=== PATIENT | male | born 1960 | race Hispanic/Latino ===

== ENCOUNTER 2017-08-02 09:45 | Inpatient (IN) | payer OTHER ==
[2017-08-02 10:15] LABS: #Lymphocytes 0.8 thou/uL (1.20-3.40); #Monocytes 0.2 thou/uL (0.11-0.59); #Neutrophils 8.9 thou/uL (1.40-6.50); %Basophils 0.2 % (0.0-1.0); %Lymphocytes 8.3 % (21.0-51.0); %Monocytes 1.9 % (0.0-10.0); Hematocrit 37.5 % (42.0-52.0); Mean Platelet Volume 6.1 fL (7.4-10.4); Red Blood Cell (RBC) Count 3.92 mill/uL (4.70-6.10); White Blood Cell (WBC) Count 9.9 thou/uL (4.8-10.8)
[2017-08-02] MEDS ORDERED: Ondansetron HCl/PF 4 MG/2 ML Vial ONE (10:19)
[2017-08-02 10:30] LABS: ALT (SGPT) 38 U/L (8-55); AST (SGOT) 48 U/L (5-34); Alkaline Phosphatase 59 U/L (40-150); Anion Gap 21 mmol/L (10-20); BUN (Urea Nitrogen) 26 mg/dL (8.4-25.7); Bilirubin, Total 1.8 mg/dL (0.2-1.2); Calc. Creatinine Clearance 0 mL/min (70-130); Calcium 8.1 mg/dL (7.8-10.44); Carbon Dioxide 20 mmol/L (22-29); Chloride 89 mmol/L (98-107); Estimated GFR-MDRD Greater than 90; Globulin 3.1 g/dL (2.4-3.5); Protein, Total 6.7 g/dL (6.0-8.3)
[2017-08-02] MEDS ORDERED: Octreotide Acetate 1,250 MCG in Sodium Chloride 0.9% 250 ML 250 ML IVPB SCH ×2 (10:45→15:45)
[2017-08-02] MEDS ORDERED: Pantoprazole 40 MG VIAL ONE (11:12)
[2017-08-02] MEDS ORDERED: Sterile Water 10 ML ONE (11:13)
[2017-08-02] MEDS ORDERED: Pantoprazole 40 MG VIAL IVP SCH (11:15)
[2017-08-02 11:22] LABS: CK (CPK) 947 U/L (30-200); Lipase 27 U/L (8-78)
--- NOTE | 2017-08-02 11:55 | CT ---
CT ABDOMEN AND PELVIS WITH IV CONTRAST: HISTORY: Abdomen pain. COMPARISON: 09/11/10. FINDINGS: The lung bases are clear. Liver is diffusely hypodense. Small hiatal hernia is apparent. The sple en, kidneys, adrenal glands, and pancreas have a normal CT appearance. There are degenerative villegas es throughout the lumbar spine. Diverticula arise from the colon without adjacent inflammation. La ck of oral contrast limits evaluation of the bowel. IMPRESSION: 1. No acute inflammatory changes are apparent. No evidence of bowel obstruction. 2. Hepatosteatosis. 3. Small hiatal hernia. POS: [facility]
[2017-08-02 12:11] LABS: Bilirubin Negative (Negative); Blood, Urine Negative (Negative); Glucose, Urine (Dipstick) 500 mg/dL (Negative); Ketone, Urine 15 mg/dL (Negative); Nitrite Negative (Negative); Protein, Urine (Dipstick) Negative (Neg-Trace)
[2017-08-02] MEDS ORDERED: Ondansetron HCl/PF 4 MG/2 ML Vial IVP PRN ×2 (14:26→15:42)
[2017-08-02] MEDS ORDERED: Ondansetron ODT 4 MG TAB SL PRN (14:26)
[2017-08-02] MEDS ORDERED: Sodium Chloride 0.9% 1,000 ML IV SCH ×2 (14:26→15:15)
[2017-08-02 14:55] LABS: Hematocrit 32.4 % (42.0-52.0)
[2017-08-02] MEDS ORDERED: Ondansetron ODT 4 MG TAB PO PRN (15:42)
[2017-08-02] MEDS ORDERED: Acetaminophen 500 MG TAB PO PRN (15:42)
[2017-08-02] MEDS ORDERED: Lorazepam 2 MG/ML VIAL SLOW IVP PRN (15:42)
[2017-08-02] MEDS ORDERED: Dextrose 50% Abboject 50 ML SYRINGE SLOW IVP PRN (15:54)
[2017-08-02] MEDS ORDERED: Dextrose 5% in Water 1,000 ML IV PRN (15:54)
[2017-08-02] MEDS: Sodium Chloride 0.9% 1,000 ML IV SCH ×2 (16:17→23:58)
[2017-08-02] MEDS: Pantoprazole 80 MG, Admixture Fee 1 EACH in Sodium Chloride 0.9% 100 ML IVP SCH (16:22)
[2017-08-02] MEDS: Multivitamins, Adult 10 ML, Folic Acid 1 MG, Thiamine HCl 100 MG in Dextrose 5 %-0.45 %... IV SCH ×4 (16:22)
--- NOTE | 2017-08-02 16:23 | HP ---
DATE OF ADMISSION: 08/02/2017 PRIMARY CARE PROVIDER: Jenny sarah. CHIEF COMPLAINT: Vomiting blood. HISTORY OF PRESENT ILLNESS: This is a 57-year-old male, Jamaican speaking only, who present s with 1 day history of vomiting blood. Patient with a longstanding history of known alcohol abuse with prior admission in 04/2017 for upper GI bleed and alcohol abuse. The patient apparently had a binge drinking episode beyond his baseline alcohol abuse over the last 2 weeks. The patient states his last alcohol intake was within the last 24 hours. The patient admitted to abdominal pain and vo miting blood, prompting him to seek medical attention. The patient also complains of some headache and lower extremity cramping. In the emergency department, the patient was initially placed on intr avenous fluids with initial hemoglobin of 12.7. Patient was initiated on Protonix and octreotide in fusion after the patient exhibited coffee ground emesis. PAST MEDICAL HISTORY: 1. Alcohol abuse. 2. History of upper GI bleeds. 3. History of grade D severe distal erosive esophagitis. 4. History of gastritis. 5. History of alcohol withdrawal syndrome. 6. History of rhabdomyolysis. 7. Noncompliance. 8. Question of diabetes mellitus type 2, untreated. 9. Hyponatremia secondary to alcohol abuse. PAST SURGICAL HISTORY: 1. Status post EGD showing severe erosive esophagitis and gastritis. 2. Status post lower back surgery. CURRENT MEDICATIONS: None. ALLERGIES: No known drug allergies. FAMILY HISTORY: Both parents in their 70s. SOCIAL HISTORY: Patient drinks more than 10 beers daily. Positive for recent binge drinking episod e. The patient chews smokeless tobacco. Lives in [place], [place]. No illicit drug use. REVIEW OF SYSTEMS: The following complete review of systems was negative, unless otherwise mentione d in the HPI or below: Constitutional: Weight loss or gain, ability to conduct usual activities. Skin: Rash, itching. Eyes: Double vision, pain. ENT/Mouth: Nose bleeding, neck stiffness, pain, tenderness. Cardiovascular: Palpitations, dyspnea on exertion, orthopnea. Respiratory: Shortness of breath, wheezing, cough, hemoptysis, fever or night sweats. Gastrointestinal: Poor appetite, abdominal pain, heartburn, nausea, vomiting, constipation, or diar daisy. Genitourinary: Urgency, frequency, dysuria, nocturia. Musculoskeletal: Pain, swelling. Neurologic/Psychiatric: Anxiety, depression. Allergy/Immunologic: Skin rash, bleeding tendency. Otherwise negative except as stated per HPI. PHYSICAL EXAMINATION: VITAL SIGNS ON ADMISSION: Currently, blood pressure 138/70, pulse 85, respiratory rate is 18, tempe rature 98.5 degrees Fahrenheit, O2 saturation 96% on room air. GENERAL APPEARANCE: This is a 57-year-old male, alert, responsive, in no acute distress. HEENT: Pupils are equal, round, and reactive to light and accommodation. Extraocular muscles are i ntact. Mild conjunctival injection bilaterally. Nares patent. OP with dried blood in the periorbi laney region. Teeth in poor repair. NECK: Supple, no cervical adenopathy, no thyromegaly, no carotid bruits, no JVD appreciated. Cervi tong spine with full active and passive range of motion. CHEST: Lungs are clear to auscultation bilaterally. CARDIOVASCULAR: S1, S2, without noted murmur. ABDOMEN: Rounded, soft, nontender, nondistended. Bowel sounds are positive in all four quadrants. There is no hepatosplenomegaly, no abdominal bruits, no rebound or guarding appreciated. EXTREMITIES: Warm and dry with fair turgor. No clubbing, cyanosis or asymmetric edema appreciated. Pulses palpable distally at the dorsalis pedis, posterior tibial, and popliteal arteries bilateral ly. Capillary refill less than 2 seconds. NEUROLOGIC: Cranial nerves II-XII are grossly intact. No focal or lateralizing signs appreciated. PERTINENT LABORATORY DATA AND X-RAY FINDINGS: Sodium 126, potassium 3.8, chloride 89, CO2 of 20, an ion gap 21, BUN 26, creatinine 0.81, glucose 228, calcium 8.1. Serum iron level 219, ferritin 304.7 , total bilirubin 1.8, AST 48, ALT 38, alkaline phosphatase 59, total CK of 947, albumin 3.6, lipase 27. CBC showed white blood cell count 9.9, hemoglobin 12.7, hematocrit 37.5, MCV 96, platelet coun t 135 with 90% neutrophils. Urinalysis positive for glucose and ketones. Plasma alcohol level 120. Gastric occult blood positive on 08/02/2017. CT of the abdomen and pelvis dated 08/02/2017 showed no acute process, hepato-steatosis. EKG dated 08/02/2017 by my interpretation shows sinus mechanis m with rates in the 90s. Normal R-wave progression noted in the precordial leads. Normal axis. No acute ST-T wave changes appreciated. ASSESSMENT AND PLAN: 1. Acute hematemesis. The patient will be admitted to the intermediate care unit. Suspect esophag eal varices versus worsening esophagitis. Continue Protonix infusion. Continue octreotide infusion . Continue intravenous normal saline at 150 mL per hour. Consult GI Service for further investigat ion and consideration of esophagogastroduodenoscopy. Serial hemoglobin and hematocrit monitoring. 2. Acute macrocytic anemia secondary to acute blood loss. Continue serial hemoglobin and hematocri t monitoring. Repeat CBC in the a.m. 3. Hyponatremia, chronic, secondary to chronic alcohol abuse. We will continue serial monitoring. No evidence to suggest clinical decompensation secondary to hyponatremia. 4. Alcohol abuse. Continue banana bag q.24 hours, Ativan 1 mg IV q.4 hours p.r.n. withdrawal sympt oms. Alcohol cessation resources. 5. Diabetes mellitus type 2. Untreated and medically noncompliant. Insulin sliding scale for refl exive coverage. Accu-Cheks q.6 hours. 6. Prophylaxis. Sequential compression devices while in bed. Protonix infusion. 7. Code status is FULL. Surrogate medical decision maker is the patient's daughter Tamiko Marquez.
[2017-08-02] MEDS ORDERED: ISOVUE-370 76%-LOCM 1 ML ONE (17:16)
--- NOTE | 2017-08-02 18:32 | CON ---
DATE OF CONSULTATION: 08/02/2017 GI INPATIENT CONSULTATION NOTE REQUESTING PHYSICIAN: Dr. Méndez. REASON FOR CONSULTATION: Hematemesis. HISTORY OF PRESENT ILLNESS: Toby Marquez is a 57-year-old man previously seen in the outpatient s etting by my colleague, Dr. Katt Gill. He was admitted to the hospital earlier today with acute hematemesis. He has an ongoing history of chronic heavy alcohol abuse and has been on especially h eavy drinking binge over the past 2 weeks, he says with very little oral intake aside from beer. No w over the past couple of days, he has had nausea and vomiting and this morning he started having he matemesis. He describes this as coffee ground emesis, though after arrival, he evidently did have s ome bright red hematemesis in small amounts. This was alarming and this is what prompted his presen tation. He also reports bilateral weakness in the lower extremities and headache as well as some tr emor in the upper and lower extremities. His last alcohol intake was within the past 24 hours. Note, he had essentially the same presentation on multiple occasions in the past few years on , 04/2014, and 04/20/2015. He presented with acute alcohol intoxication and acute hematemesis and on each of those occasions he underwent upper endoscopy, all of which showed severe distal esophagit is as well as gastritis and no evidence of any esophageal varices or other evidence of portal hypert ension. Upon arrival, hemoglobin was 12.7 and this has declined a bit to 11.4; however, he has remained hemo dynamically stable. There has been no evidence of melena or hematochezia. He was placed on Protoni x and octreotide infusions and made n.p.o. Notably, the patient tells me quite clearly that he does not want any endoscopic investigation this admission that he feels he knows where the blood is comi ng from and he would like to be treated with medications only. REVIEW OF SYSTEMS: Full review of systems including constitutional, head, eyes, ears, nose, throat, GI, , cardiovascular, respiratory, musculoskeletal, and neurologic systems is negative except as noted in the HPI. PAST MEDICAL HISTORY: Diabetes, alcohol abuse, history of severe esophagitis and gastritis, history of rhabdomyolysis, medication noncompliance. ALLERGIES: No known drug allergies. OUTPATIENT MEDICATIONS: None. INPATIENT MEDICATIONS: Banana bag, octreotide IV infusion, Protonix IV infusion. FAMILY HISTORY: Noncontributory. SOCIAL HISTORY: The patient chews tobacco. He also drinks alcohol heavily at least 10 beers per da y normally with much heavier use over the past 2 weeks. No drug abuse. PHYSICAL EXAMINATION: VITAL SIGNS: Temperature 98.5, pulse 83, blood pressure 138/70, 97% oxygen saturation on room air. GENERAL: A 57-year-old man lying in bed comfortably in no distress. MENTAL: Alert and oriented. He is able to answer questions appropriately as well as expresses wish es. SKIN: No jaundice, no rashes were palpable. EYES: No scleral icterus. Extraocular movements intact. ENT: Mucous membranes moist, no oral lesions. LYMPH: No submandibular or supraclavicular lymphadenopathy. THYROID: Nontender to palpation. HEART: Regular rate and rhythm. LUNGS: Clear to auscultation bilaterally. ABDOMEN: Flat, bowel sounds present, soft, tender to palpation only in the high epigastrium, but no guarding or rebound tenderness. EXTREMITIES: No peripheral edema. VESSELS: Radial pulses 2+ bilaterally. NEUROLOGICAL: Cranial nerves II-XII intact bilaterally, no asterixis. LABORATORY DATA: Hemoglobin initially 12.7, now 11.4, platelets 126. WBC 9.9, BUN 26, creatinine 0 .81, sodium 126, potassium 3.8, ferritin 304. Alcohol levels 120, lipase only 27, CK elevated at 94 7, total bilirubin 1.8, alkaline phosphatase 59, AST 48, ALT 38, albumin 3.6. IMAGING STUDIES: CT of the abdomen and pelvis demonstrates fatty liver and a small hiatal hernia, b ut otherwise appears essentially normal with normal appearing pancreas, spleen and kidneys. He has diverticulosis with no evidence of diverticulitis. ASSESSMENT AND PLAN: 1. Acute hematemesis. 2. Anemia, mild. 3. Ongoing alcohol abuse. The patient's presentation is certainly consistent with acute upper ana rointestinal bleeding. Note that this was essentially an identical presentation with three other ad missions over the past 4 years. Note that on each admission, upper endoscopy showed severe esophagi tis as well as some gastritis, but no evidence of any varices or portal hypertension. I doubt varic eal bleeding at this time, given his hemodynamic stability, and prior endoscopy findings. However, I do agree with the Protonix and octreotide infusions for now as we follow his clinical course in to tomorrow. Continue to trend hemoglobin and hematocrit. Note his hemodynamic stability at this hannah e. 4. I recommended esophagogastroduodenoscopy tomorrow for further assessment and identified bleeding source, rule out esophageal varices more definitively. However, the patient is quite clear that he does not desire any endoscopic investigation this admission. He would like to be treated with medi cines only. He does express understanding of the risks involved either way and I would honor his de cision at this point. GI can follow along. Anticipate if he is stable tomorrow, the octreotide can be discontinued. Would continue Protonix for the duration of this admission and at the time of dis charge, discharge him on an oral PPI and told me he certainly needs to find a way to stop drinking. Thank you for the consultation. Please call with questions or concerns.
[2017-08-02] MEDS ORDERED: FLU VACC QS2017-18 36 mo. & older 0.5 ML SYRINGE IM ONE (21:00)
[2017-08-02] MEDS: HumaLOG 300 UNITS/3 ML VIAL SC PRN (23:53)
[2017-08-03] MEDS: Pantoprazole 80 MG, Admixture Fee 1 EACH in Sodium Chloride 0.9% 100 ML IVP SCH ×3 (00:18→22:17)
[2017-08-03 05:25] LABS: Band 1 % (5-11); Neutrophil 66 % (42-75); Red Blood Cell (RBC) Count 2.43 mill/uL (4.70-6.10); White Blood Cell (WBC) Count 10.1 thou/uL (4.8-10.8)
[2017-08-03 05:57] LABS: ALT (SGPT) 30 U/L (8-55); AST (SGOT) 38 U/L (5-34); Alkaline Phosphatase 43 U/L (40-150); Anion Gap 12 mmol/L (10-20); BUN (Urea Nitrogen) 19 mg/dL (8.4-25.7); Bilirubin, Total 1.9 mg/dL (0.2-1.2); Calc. Creatinine Clearance 98 mL/min (70-130); Calcium 7.4 mg/dL (7.8-10.44); Carbon Dioxide 23 mmol/L (22-29); Chloride 99 mmol/L (98-107); Estimated GFR-MDRD Greater than 90; Globulin 2.3 g/dL (2.4-3.5); Protein, Total 5.3 g/dL (6.0-8.3)
[2017-08-03] MEDS: Sodium Chloride 0.9% 1,000 ML IV SCH ×2 (09:44→16:18)
--- NOTE | 2017-08-03 10:34 | CON ---
DATE OF CONSULTATION: 08/03/2017 CONSULTING PHYSICIAN: This is an IMCU consultation. HISTORY OF PRESENT ILLNESS: He is a 57-year-old male who speaks Scottish only. He came in with a 1 day history of hematemesis. He has also had melena. He has a longstanding history of alcoh ol abuse and was in the hospital in 04/2017 with a GI bleed. He has been bingeing over the last 2 w eeks. He is scheduled for an EGD later today. PAST MEDICAL HISTORY: 1. Alcohol abuse. 2. GI bleeding. 3. Erosive esophagitis. 4. Alcohol withdrawal. 5. Rhabdomyolysis. 6. Medical noncompliance. 7. Diabetes mellitus type 2. 8. Hypernatremia secondary to beer drinkers potomania. PAST SURGICAL HISTORY: EGD, back surgery. MEDICATIONS PRIOR TO ADMISSION: None. ALLERGIES: None. FAMILY MEDICAL HISTORY: Both parents are . SOCIAL HISTORY: Drinks at least 10 beers a day. He chews smokeless tobacco. Lives in [place], does not work. REVIEW OF SYSTEMS: Otherwise, negative. PHYSICAL EXAMINATION: VITAL SIGNS: Temperature 98.1, pulse 90, respirations 20, O2 sat 100%, blood pressure 110/67. GENERAL: He is awake, alert, and in no distress. HEENT: Unremarkable. NECK: No JVD. LUNGS: Clear to auscultation. CARDIOVASCULAR: S1, S2 regular. ABDOMEN: Liver palpable at the right costal margin. Otherwise, abdomen is soft and nontender. EXTREMITIES: No clubbing, cyanosis, or edema. NEUROLOGIC: He has a resting tremor. LABORATORY DATA: White blood cell count 10, hematocrit 24, platelet count 118. Sodium 131, potassi um 3.4, chloride 99, CO2 of 23, BUN 19, creatinine 0.7, glucose 208. ASSESSMENT: 1. Gastrointestinal bleeding secondary to esophagitis versus varices versus peptic ulcer disease 2. Alcohol abuse. PLAN: The patient will undergo EGD later today. 2. He is currently on octreotide and IV fluids. He needs to be given thiamine and folate if that i s not already being done. He has severe risk for developing DTs.
[2017-08-03] MEDS ORDERED: Propofol 200 MG/20 ML VIAL ONE (14:37)
[2017-08-03] MEDS ORDERED: ePHEDrine/0.9% NaCl/PF SYRINGE 50 mg/10 ml ONE (14:37)
[2017-08-03] MEDS ORDERED: Lidocaine 1% PF 5 ML VIAL ONE (14:37)
--- NOTE | 2017-08-03 15:09 | OP ---
DATE OF PROCEDURE: 08/03/2017 PROCEDURE: Esophagogastroduodenoscopy with control of hemorrhage. PREOPERATIVE DIAGNOSES: Hematemesis and anemia of acute blood loss. OPERATIVE NOTE: Informed consent was obtained from the patient. He was sedated with total intraven ous anesthesia. The bite block was placed and the endoscope was advanced easily to the second porti on of the duodenum and retroflexion was performed in the stomach. There was a grade D erosive esoph agitis of the distal third of the esophagus. There was a visible vessel protruding in the ulcer bas e a couple of centimeters above the GE junction. This was cauterized with a 10-Thai gold probe wi th good hemostasis. The vessel did ooze when it was touched with the gold probe. Again, good hemos tasis was confirmed once electrocautery was applied. The stomach had nonerosive erythematous gastri tis in the fundus. The remainder of the gastric mucosa was normal. The pylorus and first and secon d portions of the duodenum were normal. IMPRESSION: 1. Grade D erosive esophagitis. 2. Visible vessel in an ulcer base in the distal esophagus which was cauterized with a 10-Thai go ld probe with good hemostasis. 3. Mild erythematous gastritis in the fundus of the stomach. 4. Otherwise normal esophagogastroduodenoscopy. RECOMMENDATIONS: 1. Proton pump inhibitor twice daily. 2. Advance to a low residue diet. 3. Dr. Kim will be back tomorrow.
[2017-08-03 15:22] VITALS: BMI 25.6
--- NOTE | 2017-08-03 16:06 | PDOC.PN ---
- Subjective Encounter Start Date: 08/03/17 Encounter Start Time: 16:00 Subjective: f/u for UGI bleed s/p EGD showing Grade D erosive esophagitis and ulcer -: with visible vessel cauterized. - Objective Resuscitation Status: Resuscitation Status FULL:Full Resuscitation MAR Reviewed: Yes Vital Signs & Weight: Vital Signs (12 hours) Temp Pulse Resp BP Pulse Ox 08/03/17 15:30 98.8 F 86 16 129/68 99 08/03/17 14:00 86 16 111/61 100 08/03/17 11:29 98.5 F 84 20 119/73 100 08/03/17 10:13 76 16 110/64 98 08/03/17 07:58 98.1 F 90 20 100 08/03/17 07:12 98.1 F 90 20 110/67 100 Weight Admit Weight 138 lb 14.4 oz Weight 140 lb 2 oz I&O: 08/02/17 08/03/17 08/04/17 06:59 06:59 06:59 Intake Total 3189.4 Output Total 1050 Balance 2139.4 Result Diagrams: 08/03/17 04:59 08/03/17 04:59 Additional Labs: Accuchecks 08/03/17 08/03/17 08/02/17 11:38 05:39 23:40 POC Glucose 175 H 196 H 283 H 08/02/17 16:32 POC Glucose 162 H Laboratory Tests 08/02/17 08/02/17 08/02/17 10:05 10:05 14:46 Hgb 12.7 L 11.4 L Plt Count 135 126 L Sodium 126 L EKG Reviewed by me: Yes (Tele - SR) Phys Exam - Physical Examination Constitutional: NAD HEENT: PERRLA, oral pharynx no lesions Neck: no JVD, supple Respiratory: no wheezing, clear to auscultation bilateral Cardiovascular: RRR Gastrointestinal: soft, non-tender, no distention, positive bowel sounds Musculoskeletal: no edema, pulses present mild tremor Neurological: normal sensation, moves all 4 limbs Psychiatric: A&O x 3 Skin: normal turgor, cap refill <2 seconds Dx/Plan (1) Esophageal ulcer Code(s): K22.10 - ULCER OF ESOPHAGUS WITHOUT BLEEDING Status: Acute Qualifiers: Esophageal ulcer bleeding: with bleeding Qualified Code(s): K22.11 - Ulcer of esophagus with bleeding Comment: s/p cauterization, PPI (2) UGI bleed Code(s): K92.2 - GASTROINTESTINAL HEMORRHAGE, UNSPECIFIED Status: Acute Comment: secondary to erosive esophagitis and ulcer (3) Acute blood loss anemia Code(s): D62 - ACUTE POSTHEMORRHAGIC ANEMIA Status: Acute Comment: serial H/ H monitoring, FeSO4 (4) Erosive esophagitis Code(s): K22.10 - ULCER OF ESOPHAGUS WITHOUT BLEEDING Status: Acute Comment : PPI, avoid ETOH (5) Alcohol intoxication Status: Acute Comment: Ativan 2mg IV q4h prn (6) Hyponatremia Code(s): E87.1 - HYPO-OSMOLALITY AND HYPONATREMIA Status: Chronic Comment: Chronic, not correctable given ETOH abuse (7) Alcohol abuse Code(s): F10.10 - ALCOHOL ABUSE, UNCOMPLICATED Status: Chronic Comment: Banana bag, Ativan - Plan social research assistant, out of bed/ambulate, DVT proph w/SCDs Stable overall -: Continue Banana bag daily -: Ativan 2mg IV q4h prn -: Continue Protonix 80mg IV daily -: Avoid ETOH * AM lab: CBC * Likely home in 24h
[2017-08-03] MEDS ORDERED: Lorazepam 2 MG/ML VIAL SLOW IVP PRN (17:10)
[2017-08-03] MEDS: HumaLOG 300 UNITS/3 ML VIAL SC PRN (18:15)
[2017-08-03] MEDS: Multivitamins, Adult 10 ML, Folic Acid 1 MG, Thiamine HCl 100 MG in Dextrose 5 %-0.45 %... IV SCH ×4 (18:26)
[2017-08-04] MEDS: HumaLOG 300 UNITS/3 ML VIAL SC PRN ×2 (00:19→05:56)
[2017-08-04 06:04] LABS: Band 4 % (5-11); Hematocrit 20.9 % (42.0-52.0); Mean Platelet Volume 6.8 fL (7.4-10.4); Neutrophil 58 % (42-75); Red Blood Cell (RBC) Count 2.14 mill/uL (4.70-6.10); White Blood Cell (WBC) Count 4.7 thou/uL (4.8-10.8)
[2017-08-04 08:00] VITALS: BP 124/76; TEMP 98.2
[2017-08-04] MEDS: Pantoprazole 80 MG, Admixture Fee 1 EACH in Sodium Chloride 0.9% 100 ML IVP SCH (08:34)
[2017-08-04 09:47] LABS: Hematocrit 21.6 % (42.0-52.0)
--- NOTE | 2017-08-04 10:18 | DIS ---
DATE OF ADMISSION: 08/02/2017 DATE OF DISCHARGE: 08/04/2017 DISCHARGE DIAGNOSES: 1. Status post acute upper gastrointestinal bleed secondary to #2. 2. Esophageal ulcer, status post cauterization. 3. Severe grade D erosive esophagitis. 4. Alcohol abuse. 5. Acute blood loss anemia secondarily to #1 and #2. 6. Hyponatremia, chronic, secondary to alcohol abuse. 7. Hypokalemia, mild. 8. Thrombocytopenia secondary to alcohol abuse. 9. Noncompliance. PERTINENT LAB AND X-RAY FINDINGS: Sodium ranging between 126-131. Potassium ranging between 3.4-3. 8, calcium 7.4, serum iron level 219, ferritin 305, total bilirubin 1.8, AST 48, ALT 38, alkaline ph osphatase 59, total CK 947, lipase 27. CBC showed a hemoglobin ranging between 7.4-12.7, platelet c ount ranging between 106-135. Plasma alcohol level 120, 08/02/2017. Gastric occult blood dated 12/[address] of the abdomen and pelvis dated 08/02/2017 showed no acute intraabdominal proc ess. EGD dated 08/03/2017 showed grade D erosive esophagitis. Distal esophageal ulcer with visible vessel, status post cauterization. Mild gastritis. HOSPITAL COURSE: Patient was admitted to the intermediate care unit after initially presenting with acute upper gastrointestinal bleed and hematemesis. The patient was placed on aggressive IV fluid hydration, IV Protonix, and octreotide. The patient was evaluated by the GI service, undergoing EGD evaluation, showing grade D erosive esophagitis as well as distal esophageal ulcer with visible ves trace, status post cauterization. Serial hemoglobin assessment showed overall decrease from 12.7 on a dmission to 7.4. The patient's overall hematemesis resolved with n.p.o. status, IV fluids as well a s intravenous Protonix and octreotide. The patient was resumed on clear liquids, transitioning to a regular diet without complication. The patient was also noted with acute alcohol intoxication in t he context of known chronic alcohol abuse with concomitant metabolic derangements associated with th is process. The patient was placed on Ativan for withdrawal prophylaxis and given IV banana bag jackie ly. The patient was cautioned regarding the use of ongoing alcohol after discharge and his ramifica tions for likely GI bleeding in the future. Overall, the patient remained clinically stable through out the remainder of the hospital course and ready for discharge on 08/04/2017. DISCHARGE MEDICATIONS: Protonix 40 mg 1 tab p.o. b.i.d. x4 weeks. FOLLOWUP: The patient will be given a list of local [facility] clinics for followup. Recomme nd follow up in 7 days with CBC at first followup visit. CONDITION ON DISCHARGE: Fair. ACTIVITY: Ad mac. DIET: Regular. CODE STATUS: Full. DISPOSITION: Home, 08/04/2017.
--- NOTE | 2017-08-04 10:51 | PRG ---
DATE OF SERVICE: 08/04/2017 The patient is up walking around and feels fine and wants to go home. PHYSICAL EXAMINATION: VITAL SIGNS: Temperature 98.2, pulse 87, respirations 18, O2 sat 91%, blood pressure 124/76. HEENT: Unremarkable. NECK: No JVD. LUNGS: Clear. CARDIAC: S1 and S2 regular. ABDOMEN: Soft. EXTREMITIES: No edema. IMAGING: His EGD showed erosive esophagitis. He had a visible vessel at distal esophagus, which wa s cauterized. LABORATORY DATA: White blood cell count 4.7, hemoglobin 7.4, hematocrit 20.9, platelet count 106. No chemistry was done today. ASSESSMENT: Stable post-gastrointestinal bleed. RECOMMENDATIONS: From my standpoint, he can go to the floor. It will be up to the hospitalist and GI doctor regarding disposition at discharge, no further input. Please recall if needed.
== END 2017-08-04 11:10 | disposition home or self-care (01) | DRG 381 ==
LOC: ERS 09:45 → IMCU/EMU 12:36
PROVIDERS: ADMIT Family Medicine; ATTEND Family Medicine
PROC: 0W3P8ZZ Control Bleeding in Gastrointestinal Tract, Via Natural or Artificial Opening Endoscopic (ICD-10-PCS; principal; 2017-08-03)
DX: K22.11 Ulcer of esophagus with bleeding (principal); D62 Acute posthemorrhagic anemia; E87.1 Hypo-osmolality and hyponatremia; D69.59 Other secondary thrombocytopenia; F10.10 Alcohol abuse, uncomplicated; E87.6 Hypokalemia; Z91.14 Patient's other noncompliance with medication regimen; K29.70 Gastritis, unspecified, without bleeding; F17.220 Nicotine dependence, chewing tobacco, uncomplicated
CPT/HCPCS: 36415; 36416; 74177; 80053; 80307; 81003; 82271; 82550; 82728; 83540; 83690; 85007; 85025; 85027; 86850; 86900; 86901; 93005; 96361; 96365; 96366; 96375; A4216; C9113; J2001; J2354; J2405; J2704; J3411; J7042; J7050

== ENCOUNTER 2018-03-27 08:26 | Inpatient (IN) | payer OTHER ==
[2018-03-27] MEDS ORDERED: Ondansetron ODT 8 MG TAB ONE ×2 (09:00→10:40)
[2018-03-27 09:54] LABS: #Basophils 0.1 thou/uL (0.0-0.2); #Lymphocytes 1.1 thou/uL (1.20-3.40); #Monocytes 0.4 thou/uL (0.11-0.59); #Neutrophils 7.8 thou/uL (1.40-6.50); %Basophils 0.7 % (0.0-1.0); %Eosinophils 0.3 % (0.0-10.0); %Monocytes 3.9 % (0.0-10.0); %Neutrophils 83.2 % (42.0-75.0); Hemoglobin 13.1 g/dL (14.0-18.0); Mean Corpuscular HGB CONC 37.5 g/dL (32.0-36.0); Mean Corpuscular Hemoglobin 34.4 pg (27.0-31.0); Mean Corpuscular Volume 91.7 fl (80.0-94.0); Mean Platelet Volume 6.4 fL (7.4-10.4); Platelet Count 183 thou/uL (130-400); RBC Distribution Width 10.9 % (11.5-14.5); RBC Morphology Normal; White Blood Cell (WBC) Count 9.3 thou/uL (4.8-10.8)
[2018-03-27 10:00] LABS: ALT (SGPT) 48 U/L (8-55); AST (SGOT) 86 U/L (5-34); Albumin 3.9 g/dL (3.5-5.0); Alcohol 199 mg/dL (Less than 10); Alkaline Phosphatase 62 U/L (40-150); Anion Gap 21 mmol/L (10-20); BUN (Urea Nitrogen) 12 mg/dL (8.4-25.7); Bilirubin, Total 2.4 mg/dL (0.2-1.2); Calc. Creatinine Clearance 0 mL/min (70-130); Calcium 8.1 mg/dL (7.8-10.44); Carbon Dioxide 24 mmol/L (22-29); Estimated GFR-MDRD Greater than 90; Globulin 3.1 g/dL (2.4-3.5); Glucose 184 mg/dL (70-105); Lipase 50 U/L (8-78)
[2018-03-27 10:09] LABS: Chloride 70 mmol/L (98-107); Potassium 2.9 mmol/L (3.5-5.1); Sodium 112 mmol/L (136-145)
[2018-03-27] MEDS ORDERED: Pantoprazole 40 MG VIAL ONE (10:41)
[2018-03-27 10:55] LABS: Bilirubin Negative (Negative); Blood, Urine Negative (Negative); Clarity CLOUDY (Clear); Glucose, Urine (Dipstick) 100 mg/dL (Negative); Leukocyte Negative (Negative); Nitrite Negative (Negative); Protein, Urine (Dipstick) Negative (Neg-Trace); Specific Gravity, Urine 1.016 (1.002-1.036)
[2018-03-27 11:04] LABS: Cocaine Metabolite Screen Not Detected (NotDetected); Medtox Reader # READER 1; Methamphetamine Not Detected (NotDetected); Phencyclidine (PCP) Not Detected (NotDetected); THC/Cannabinoid Screen Not Detected (NotDetected)
[2018-03-27 11:05] LABS: Amphetamine Not Detected (NotDetected); Barbiturates Screen Not Detected (NotDetected); Benzodiazepine Screen Not Detected (NotDetected); Medtox Control Line Valid? VALID (VALID); Methadone Not Detected (NotDetected); Opiate Screen Not Detected (NotDetected); Oxycodone Screen Not Detected (NotDetected); Tricyclic Screen Not Detected (NotDetected)
--- NOTE | 2018-03-27 11:26 | PDOC.FPRHP ---
- History of Present Illness Chief Complaint: Intoxication, Headache, Vomiting History of Present Illness: 57 yo male w/ pmh of alcohol abuse, GI bleeds due to ulcers comes in with c/c of headache and vomiting. Pt is intoxicated at the current moment. Unable to obtain accurate history at this time. Pt answers to questions does not make sense at this time. Pt reports having stomach pain and a headache. Reports drinking 20 bud lights today. Pt says he didn't drink today and last drink was yesterday morning. - Allergies/Adverse Reactions Allergies Allergy/AdvReac Type Severity Reaction Status Date / Time No Known Drug Allergies Allergy Unknown Verified 03/27/18 13:27 - Home Medications Medication Instructions Recorded Confirmed Type No Known [No Known] 03/27/18 03/27/18 History - History Unable to obtain PMH due to intoxication. Hx obtained from last admission PMHx: Alcohol Abuse, Hx GI bleeds, Hx Grade D severe distal erosive esophagitis , Hx gastritis, Hx alcohol withdrawl seizures. DMII, Hyponatremia due to alcohol use PSHx: 4 EGD's in past, last showed severe erosive esophagitis and ulcer with visible vessel. S/p lower back surgery FHx: unable to obtain. Social: unable to get accurate answers. Says drinks 20 bud lights today. Old hx says uses smokless tobacco - Review of Systems ROS unobtainable: due to mental status (intoxicated and not answering appropriatley) General: reports: other (headache) Gastrointestinal: reports: abdominal pain - Vital signs BP: [141/79] HR: [79] RR: [18] Tmax: [98.3] Pox: [97]% on [RA] Wt: [68kg] - Physical Exam Constitutional: NAD -Constitutional: Pt alert but not oriented. is intoxicated at the current moment HEENT: normocephalic and atraumatic, conjunctiva clear, no scleral icterus Neck: supple, trachea midline, no thyromegaly, no bruits Chest: no-tender to palpation, no lesions Heart: RRR, normal S1/S2, no murmurs/rubs/gallops Lungs: CTAB, no respiratory distress, good air movement, no rales/rhonchi, no wheezing Abdomen: soft, bowel sounds present, no masses/distention -Abdomen: mildly tender to palpation. McMurphy's negative Musculoskeletal: normal structure, normal tone Neurological: no focal deficit Skin: no rash/lesions -Heme/Lymphatic: appears to be vomit on bed sheets and appears to have some blood on it -Psychiatric: Pt intoxicated FMR H&P: Results - Labs Result Diagrams: 03/27/18 14:54 03/27/18 14:54 Lab results: WBC 9.3 thou/uL (4.8-10.8) 03/27/18 09:14 Hgb 13.1 g/dL (14.0-18.0) L 03/27/18 09:14 Hct 34.8 % (42.0-52.0) L 03/27/18 09:14 MCV 91.7 fl (80.0-94.0) 03/27/18 09:14 Plt Count 183 thou/uL (130-400) 03/27/18 09:14 Neutrophils % 83.2 % (42.0-75.0) H 03/27/18 09:14 Sodium 112 mmol/L (136-145) L* 03/27/18 09:10 Potassium 2.9 mmol/L (3.5-5.1) L* 03/27/18 09:10 Chloride 70 mmol/L (98-107) L* 03/27/18 09:10 Carbon Dioxide 24 mmol/L (22-29) 03/27/18 09:10 BUN 12 mg/dL (8.4-25.7) 03/27/18 09:10 Creatinine 0.71 mg/dL (0.6-1.3) 03/27/18 09:10 Glucose 184 mg/dL (70-105) H 03/27/18 09:10 Calcium 8.1 mg/dL (7.8-10.44) 03/27/18 09:10 Total Bilirubin 2.4 mg/dL (0.2-1.2) H 03/27/18 09:10 AST 86 U/L (5-34) H 03/27/18 09:10 ALT 48 U/L (8-55) 03/27/18 09:10 Alkaline Phosphatase 62 U/L (40-150) 03/27/18 09:10 Serum Total Protein 7.0 g/dL (6.0-8.3) 03/27/18 09:10 Albumin 3.9 g/dL (3.5-5.0) 03/27/18 09:10 Lipase 50 U/L (8-78) 03/27/18 09:10 Urine Ketones 40 mg/dL (Negative) H 03/27/18 10:32 Urine Blood Negative (Negative) 03/27/18 10:32 Urine Nitrite Negative (Negative) 03/27/18 10:32 Ur Leukocyte Esterase Negative (Negative) 03/27/18 10:32 FMR H&P: A/P - Problem List (1) UGI bleed Current Visit: Yes Status: Acute Priority: High Code(s): K92.2 - GASTROINTESTINAL HEMORRHAGE, UNSPECIFIED (2) Hyponatremia Current Visit: Yes Status: Acute Priority: High Code(s): E87.1 - HYPO- OSMOLALITY AND HYPONATREMIA (3) Metabolic acidosis, increased anion gap Current Visit: Yes Status: Acute Priority: Medium Code(s): E87.2 - ACIDOSIS (4) Abnormal LFTs Current Visit: Yes Status: Acute Priority: Medium Code(s): R79.89 - OTHER SPECIFIED ABNORMAL FINDINGS OF BLOOD CHEMISTRY (5) Alcohol intoxication Current Visit: No Status: Acute Priority: Medium Qualifiers: Complication of substance-induced condition: with unspecified complication Qualified Code(s): F10.929 - Alcohol use, unspecified with intoxication, unspecified (6) Hypokalemia Current Visit: Yes Status: Acute Priority: Medium Code(s): E87.6 - HYPOKALEMIA (7) Alcohol abuse Current Visit: No Status: Chronic Code(s): F10.10 - ALCOHOL ABUSE, UNCOMPLICATED (8) Diabetes Current Visit: Yes Status: Acute Priority: Low Code(s): E11.9 - TYPE 2 DIABETES MELLITUS WITHOUT COMPLICATIONS Qualifiers: Diabetes mellitus type: type 2 Diabetes mellitus correction insulin use: without computer terminal operator use Diabetes mellitus complication status: with unspecified complications Qualified Code(s): E11.8 - Type 2 diabetes mellitus with unspecified complications - Plan 1) Acute UGI bleed likely 2/2 tawana trish vs ucler protonix IV bid, octreotide gtt in case of variceal bleed (although hx suggests most likely bleeding ulcer), check occult blood for gastric contents, trend H&H. Consult GI if continues to have episodes of bloody emesis or hgb begins to drop 2) Severe hyponatremia- s/p 1L NS bolus in ED. NS@150 mls/hr. -Repeat BMP q2hr and do not correct >10 mEq/24hr. seizure ppx 3) Acute ETOH intoxication- Banana bag qd until tolerating po, ASE protocol, seizure ppx with ativan Hepatitis panel, RPR, HIV pending 4) Elevated LFTs and bilirubin- underlying cirrhosis possible, check RUQ US, coags, ammonia, GGT. Will recheck CMP am. Possibly consider consultign GI 5) Hypokalemia- Will replace in banana bag. Q2hr BMP for now. Will continue to follow 6) Anion gap metabolic acidosis- due to alcohol intoxication. Will continue to trend with BMP 7) Alcoholism consider CM/MHMR for rehab when medically cleared 8) DM2- A1c pending. Unknown home medicines at this time. CC diet. Mild SSI. FMR H&P: Upper Level - Pertinent history 57yo HM with pmhx sig for longstanding ETOH abuse with recurrent admissions for UGI bleeds presents to [facility] ED with nausea, vomiting and headache. States he started drinking heavily 2 wks prior and stopped drinking yesterday am ( although alcohol level 199 currently). Beer drinker of [employer] light up to 20-30 beers daily. He endorses increased life stressors as his is in [place], but the pt does not expand beyond this. He is acutely intoxicated and a very poor historian currently. Review of records significant for prior withdrawal seizure and recent EGD in 2016 showing erosive esophagitis and visible vessel in an ulcer. pmhx- ETOH abuse, DM2 surg hx- denies meds- metformin, has not taken any in 2 wks allergies- NKDA by records review - Pertinent findings Gen- acutely intoxicated tremulous male who is disheveled and covered in dirt and bed covered with coffee-ground emesis HEENT- scleral icterus CV- RRR no mrg, no LE edema Lungs- CTAB Abd- soft, ttp in epigastrum Ext- hematoma to dorsum of right hand psyc- poor historian, poor short term memory Laboratory Tests Sig labs- 03/27/18 03/27/18 09:10 09:14 WBC 9.3 Hgb 13.1 L Hct 34.8 L Plt Count 183 Neutrophils % 83.2 H Sodium 112 L* Potassium 2.9 L* Chloride 70 L* Carbon Dioxide 24 Anion Gap 21 H BUN 12 Creatinine 0.71 Estimated GFR (MDRD) Greater than 90 Glucose 184 H Calcium 8.1 Total Bilirubin 2.4 H AST 86 H ALT 48 Alkaline Phosphatase 62 Albumin 3.9 Lipase 50 Plasma Alcohol 199 H - Plan Date/Time: 03/27/18 1126 57yo HM w/ pmhx alcohol abuse and multiple prior admissions p/w- 1) Acute UGI bleed- protonix IV bid, octreotide gtt in case of variceal bleed ( although hx suggests most likely bleeding ulcer), check occult blood for gastric contents, trend H&H. Consult GI if further episodes of hematemesis or need for urgent EGD intervention arises. 2) Severe hyponatremia- s/p 1L NS bolus in ED followed by NS gtt. Repeat BMP q2hr and do not correct >10 mEq/24hr. seizure ppx. 3) Acute ETOH intoxication- Banana bag qd until tolerating po, ASE protocol, seizure ppx with ativan (no valium as acute liver injury & possible underlying cirrhosis). check Hep B, Hep C, HIV, RPR. 4) Elevated LFTs- underlying cirrhosis possible, check RUQ US, coags, ammonia, GGT. consider GI consult. 5) Hypokalemia- replete and trend BMP 6) Anion gap metabolic acidosis- likely due to ETOH intoxication. monitor BMPs and replete lytes. 7) Alcoholism- consider CM for rehab when medically cleared 8) DM2- check a1c, hold po meds. SSI. I, [Kecia Silver DO ([email or web address])], have evaluated this patient and agree with findings/plan as outlined by graphic design intern resident. Pertinent changes/additions are listed here. Attending Addendum - Attending Addendum Date/Time: 03/27/18 5439 I personally evaluated the patient and discussed the management with Dr. Ha I agree with the History, Examination, Assessment and Plan documented above with any addition or exceptions noted below.57 yo diabetic male admitted through ER with episode of hematemesis x 1 following a 2 week beer drinking binge. Patient with prior admissions with prior EGD last 2016 with erosive esophagitis and distal esophageal ulcer which was cauterized. No prior documented evidence portal hypertension or esophageal varices. Patient with acute alcohol intoxication, hyponatremia c/w beer potomania,elevated LFTs, concern ETOH related hepatitis. Will admit placed on PPI and Octreatide empirically. consult GI prn and ASE protocol for anticipated alcohol withdrawal.
[2018-03-27] MEDS ORDERED: Octreotide Acetate 1,250 MCG in Sodium Chloride 0.9% 250 ML 250 ML IVPB SCH (12:04)
[2018-03-27] MEDS ORDERED: Dextrose 5% in Water 1,000 ML IV PRN (12:04)
[2018-03-27] MEDS ORDERED: Acetaminophen 650 MG Suppository PR PRN ×2 (12:04→12:34)
[2018-03-27] MEDS ORDERED: Sodium Chloride 0.9% 1,000 ML IV SCH (12:04)
[2018-03-27] MEDS ORDERED: Ondansetron ODT 4 MG TAB PO PRN (12:04)
[2018-03-27] MEDS ORDERED: Ondansetron HCl/PF 4 MG/2 ML Vial IVP PRN (12:04)
[2018-03-27] MEDS ORDERED: HumaLOG 300 UNITS/3 ML VIAL SC PRN (12:04)
[2018-03-27] MEDS ORDERED: Acetaminophen 325 MG TAB PO PRN (12:04)
[2018-03-27] MEDS ORDERED: Dextrose 50% Abboject 50 ML SYRINGE SLOW IVP PRN (12:04)
[2018-03-27] MEDS ORDERED: Lorazepam 2 MG/ML VIAL SLOW IVP PRN ×2 (12:04→12:07)
[2018-03-27 12:14] VITALS: BMI 25.0
[2018-03-27 12:37] LABS: Hemoglobin 12.2 g/dL (14.0-18.0); Mean Corpuscular HGB CONC 37.2 g/dL (32.0-36.0); Mean Corpuscular Volume 91.3 fl (80.0-94.0); Mean Platelet Volume 5.9 fL (7.4-10.4); Platelet Count 158 thou/uL (130-400); RBC Distribution Width 10.8 % (11.5-14.5); Red Blood Cell (RBC) Count 3.58 mill/uL (4.70-6.10); White Blood Cell (WBC) Count 8.8 thou/uL (4.8-10.8)
[2018-03-27 12:40] LABS: Hemoglobin A1c 5.4 % (4.0-6.0)
[2018-03-27 12:44] LABS: Anion Gap 15 mmol/L (10-20); BUN (Urea Nitrogen) 10 mg/dL (8.4-25.7); Calc. Creatinine Clearance 109 mL/min (70-130); Calcium 7.5 mg/dL (7.8-10.44); Carbon Dioxide 26 mmol/L (22-29); Chloride 79 mmol/L (98-107); Estimated GFR-MDRD Greater than 90; Glucose 136 mg/dL (70-105); PTT 26.9 SEC (22.9-36.1); Potassium 3.4 mmol/L (3.5-5.1); Prothrombin Time 13.7 SEC (12.0-14.7)
[2018-03-27 12:46] LABS: Magnesium 1.6 mg/dL (1.6-2.6); Phosphorus 2.9 mg/dL (2.3-4.7)
[2018-03-27 12:49] LABS: Sodium 117 mmol/L (136-145)
[2018-03-27] MEDS ORDERED: Potassium Chloride 40 MEQ in Sodium Chloride 0.9% 500 ML IVPB ONE (13:00)
[2018-03-27 13:04] LABS: Syphilis Antibody Nonreactive (Nonreactive); Syphilis Antibody Index 0.06 S/CO (<1.00 Non-Reactive)
[2018-03-27 13:07] LABS: HBCM Index 0.07 S/CO (0-0.79); HBSAg Index 0.25 S/CO (0-0.99); HIV (1/2) Antibody/Antigen Non-Reactive (NonReactive); HIV 1/2 INDEX 0.14 S/CO (<1.00); Hep A IgM AB Non-Reactive (NonReactive); Hep A IgM S/CO 0.12 S/CO (0-0.79); Hep B Surf Ag Non-Reactive S/CO (NonReactive); Hep C IgG Ab Non-Reactive (NonReactive); Hep C Index 0.09 S/CO (0-0.79); Hepatitis B Core IGM Abs Non-Reactive (NonReactive)
--- NOTE | 2018-03-27 13:23 | ULT ---
GALLBLADDER ULTRASOUND: HISTORY: Epigastric pain. Elevated bilirubin. COMPARISON: None. TECHNIQUE: Utilizing a multihertz transducer, sonographic imaging in the right upper quadrant is performed in a longitudinal and transverse plane. FINDINGS: Pancreas is obscured by bowel gas. Heterogeneity of the liver due limits evaluation. Right hepatic lobe measures 18 cm. Patent main portal vein. Appropriate directional flow. Common bile duct diameter is 0.4 cm. Sludge within the lumen of the gallbladder. Gallbladder wall is not thickened. No pericholecystic f luid. Negative Hull's sign. No hydronephrosis. The right kidney has a normal echotexture. The right kidney measures 4.6 x 10.3 x 5.1 cm. IMPRESSION: 1. No sonographic evidence of cholecystitis. Possible sludge. 2. Hepatomegaly with heterogenous attenuation due to hepatic steatosis as demonstrated on previous C T. POS: [facility]
[2018-03-27] MEDS: Potassium Chloride 20 MEQ in Premix Bag 1 BAG IVPB SCH ×2 (13:43→14:25)
[2018-03-27] MEDS: Acetaminophen 325 MG TAB PO PRN (13:49)
[2018-03-27 15:02] LABS: Hemoglobin 12.4 g/dL (14.0-18.0); Mean Corpuscular HGB CONC 36.6 g/dL (32.0-36.0); Mean Corpuscular Hemoglobin 33.5 pg (27.0-31.0); Mean Corpuscular Volume 91.6 fl (80.0-94.0); Mean Platelet Volume 6.1 fL (7.4-10.4); Platelet Count 160 thou/uL (130-400); RBC Distribution Width 10.9 % (11.5-14.5); Red Blood Cell (RBC) Count 3.69 mill/uL (4.70-6.10); White Blood Cell (WBC) Count 11.4 thou/uL (4.8-10.8)
[2018-03-27 15:21] LABS: Anion Gap 14 mmol/L (10-20); BUN (Urea Nitrogen) 9 mg/dL (8.4-25.7); Calc. Creatinine Clearance 102 mL/min (70-130); Calcium 7.7 mg/dL (7.8-10.44); Carbon Dioxide 27 mmol/L (22-29); Chloride 81 mmol/L (98-107); Estimated GFR-MDRD Greater than 90; Glucose 120 mg/dL (70-105); Potassium 3.5 mmol/L (3.5-5.1)
[2018-03-27] MEDS ORDERED: Multivitamins, Adult 10 ML, Folic Acid 1 MG, Thiamine HCl 100 MG in Dextrose 5 %-0.45 %... IV SCH (15:30)
[2018-03-27 15:31] LABS: Sodium 118 mmol/L (136-145)
[2018-03-27] MEDS ORDERED: Multivit, Adult Inj 10 ML VIAL IV SCH (16:45)
[2018-03-27] MEDS ORDERED: Multivitamins, Adult 10 ML in Sodium Chloride 0.9% 500 ML IV ONE (17:00)
[2018-03-27 18:36] LABS: Anion Gap 17 mmol/L (10-20); BUN (Urea Nitrogen) 9 mg/dL (8.4-25.7); Calc. Creatinine Clearance 103 mL/min (70-130); Calcium 7.7 mg/dL (7.8-10.44); Carbon Dioxide 25 mmol/L (22-29); Chloride 82 mmol/L (98-107); Estimated GFR-MDRD Greater than 90; Glucose 98 mg/dL (70-105); Potassium 3.7 mmol/L (3.5-5.1); Sodium 120 mmol/L (136-145)
[2018-03-27] MEDS: Thiamine HCl 200 MG/2 ML VIAL SLOW IVP SCH (19:15)
[2018-03-27] MEDS: Lorazepam 2 MG/ML VIAL SLOW IVP PRN (19:19)
[2018-03-27] MEDS: Pantoprazole 40 MG VIAL IVP SCH (20:49)
[2018-03-27 21:18] LABS: Anion Gap 14 mmol/L (10-20); BUN (Urea Nitrogen) 10 mg/dL (8.4-25.7); Calc. Creatinine Clearance 99 mL/min (70-130); Calcium 7.5 mg/dL (7.8-10.44); Carbon Dioxide 26 mmol/L (22-29); Chloride 83 mmol/L (98-107); Estimated GFR-MDRD Greater than 90; Glucose 120 mg/dL (70-105)
[2018-03-27 21:20] LABS: Sodium 119 mmol/L (136-145)
[2018-03-28 01:12] LABS: Anion Gap 13 mmol/L (10-20); BUN (Urea Nitrogen) 10 mg/dL (8.4-25.7); Calc. Creatinine Clearance 94 mL/min (70-130); Calcium 7.5 mg/dL (7.8-10.44); Carbon Dioxide 26 mmol/L (22-29); Chloride 88 mmol/L (98-107); Estimated GFR-MDRD Greater than 90; Glucose 86 mg/dL (70-105); Potassium 3.8 mmol/L (3.5-5.1); Sodium 123 mmol/L (136-145)
[2018-03-28] MEDS: Lorazepam 2 MG/ML VIAL SLOW IVP PRN (02:09)
[2018-03-28 05:27] LABS: #Lymphocytes 1.3 thou/uL (1.20-3.40); #Monocytes 0.4 thou/uL (0.11-0.59); #Neutrophils 5.1 thou/uL (1.40-6.50); %Basophils 0.4 % (0.0-1.0); %Eosinophils 0.3 % (0.0-10.0); %Lymphocytes 18.8 % (21.0-51.0); %Monocytes 6.2 % (0.0-10.0); %Neutrophils 74.3 % (42.0-75.0); Hemoglobin 11.6 g/dL (14.0-18.0); Mean Corpuscular HGB CONC 36.8 g/dL (32.0-36.0); Mean Corpuscular Hemoglobin 34.9 pg (27.0-31.0); Mean Corpuscular Volume 94.9 fl (80.0-94.0); Platelet Count 167 thou/uL (130-400); RBC Distribution Width 11.1 % (11.5-14.5); Red Blood Cell (RBC) Count 3.32 mill/uL (4.70-6.10); White Blood Cell (WBC) Count 6.9 thou/uL (4.8-10.8)
[2018-03-28 05:50] LABS: ALT (SGPT) 50 U/L (8-55); AST (SGOT) 80 U/L (5-34); Albumin 3.3 g/dL (3.5-5.0); Alkaline Phosphatase 61 U/L (40-150); Anion Gap 13 mmol/L (10-20); BUN (Urea Nitrogen) 11 mg/dL (8.4-25.7); Bilirubin, Total 2.1 mg/dL (0.2-1.2); Calc. Creatinine Clearance 105 mL/min (70-130); Calcium 7.8 mg/dL (7.8-10.44); Carbon Dioxide 21 mmol/L (22-29); Chloride 92 mmol/L (98-107); Estimated GFR-MDRD Greater than 90; Globulin 2.8 g/dL (2.4-3.5); Glucose 86 mg/dL (70-105); Potassium 3.6 mmol/L (3.5-5.1); Protein, Total 6.1 g/dL (6.0-8.3); Sodium 122 mmol/L (136-145)
--- NOTE | 2018-03-28 08:40 | PDOC.FM ---
- Subjective Subjective: No acute events overnight. Pt did not have anymore episodes of coffee ground emesis. Denies cp, sob, nvdc, abominal pain. Dneies changes in stool or blood in stool. Eating and drinking well w/o pain. Pt reports he has previously gone 6 -7 months without any alcohol previously. - Objective Vital Signs & Weight: Vital Signs (12 hours) Temp Pulse Resp BP Pulse Ox 03/28/18 04:00 98.2 F 83 19 131/69 98 03/28/18 00:00 98.2 F 75 18 141/69 H 98 03/27/18 20:55 98.7 F 80 16 134/66 97 Weight Weight 61.779 kg I&O: 03/27/18 03/28/18 03/29/18 06:59 06:59 06:59 Intake Total 1650 Output Total 1500 Balance 150 Result Diagrams: 03/28/18 04:18 03/28/18 04:18 Phys Exam - Physical Examination Constitutional: NAD HEENT: PERRLA, sclera anicteric conjunctival injection Neck: no nodes, no JVD Respiratory: no wheezing, no rales, no rhonchi, clear to auscultation bilateral Cardiovascular: RRR, no significant murmur, no rub Gastrointestinal: soft, non-tender, no distention, positive bowel sounds Musculoskeletal: no edema, pulses present Neurological: non-focal, normal sensation Skin: no rash, cap refill <2 seconds Dx/Plan (1) Abnormal LFTs Code(s): R79.89 - OTHER SPECIFIED ABNORMAL FINDINGS OF BLOOD CHEMISTRY Status : Acute (2) Diabetes Code(s): E11.9 - TYPE 2 DIABETES MELLITUS WITHOUT COMPLICATIONS Status: Acute Qualifiers: Diabetes mellitus type: type 2 Diabetes mellitus watermelon harvesting supervisor insulin use: without fdc use Diabetes mellitus complication status: with unspecified complications Qualified Code(s): E11.8 - Type 2 diabetes mellitus with unspecified complications (3) Hypokalemia Code(s): E87.6 - HYPOKALEMIA Status: Acute (4) Hyponatremia Code(s): E87.1 - HYPO-OSMOLALITY AND HYPONATREMIA Status: Acute (5) UGI bleed Code(s): K92.2 - GASTROINTESTINAL HEMORRHAGE, UNSPECIFIED Status: Acute (6) Alcohol intoxication Status: Acute Qualifiers: Complication of substance-induced condition: with unspecified complication Qualified Code(s): F10.929 - Alcohol use, unspecified with intoxication, unspecified (7) Erosive esophagitis Code(s): K22.10 - ULCER OF ESOPHAGUS WITHOUT BLEEDING Status: Acute (8) Alcohol abuse Code(s): F10.10 - ALCOHOL ABUSE, UNCOMPLICATED Status: Chronic - Plan Plan: 1) Acute UGI bleed- protonix IV bid -DC octreotide - Given history and positive finding of erosive esophagitis in past this is most likely source. - cont protonix, h/h slight decrease from yesterday, trend in AM and monitor for s/s of cont bleeding -possibly 2/2 tawana trish tear 2) Severe hyponatremia- s/p 1L NS bolus in ED followed by NS gtt. Corrected 10mEq in 24 hours. SL and no fluid restrictions. Likely secondary to beer potomania -Repeat am BMP, continues to improve 3) Acute ETOH intoxication- Banana bag qd until tolerating po, ASE protocol, seizure ppx with ativan Hep panel and HIV RPR are negative. 4) Elevated LFTs- Fatty liver on RUQ US, no evidence of cirrhosis on US 5) Hypokalemia- replete and trend BMP, resolved 6) Anion gap metabolic acidosis- likely due to ETOH intoxication. monitor BMPs and replete lytes, resolved 7) Alcoholism- consider CM for rehab when medically cleared 8) DM2- check a1c, hold po meds, cont SSI. A1C 5.4. Dispo: Cont to monitor Elytes and daily hgb. Likely d/c tomorrow if no acute bleeds and hgb remains stable in addition to correcting Na.
[2018-03-28] MEDS: Pantoprazole 40 MG VIAL IVP SCH (08:58)
[2018-03-28] MEDS: Multivit, Therapeutic 1 TAB PO SCH (08:58)
[2018-03-28 09:44] LABS: Anion Gap 9 mmol/L (10-20); BUN (Urea Nitrogen) 13 mg/dL (8.4-25.7); Calc. Creatinine Clearance 89 mL/min (70-130); Calcium 7.9 mg/dL (7.8-10.44); Carbon Dioxide 26 mmol/L (22-29); Chloride 90 mmol/L (98-107); Estimated GFR-MDRD Greater than 90; Glucose 216 mg/dL (70-105); Potassium 3.2 mmol/L (3.5-5.1); Sodium 122 mmol/L (136-145)
[2018-03-28] MEDS ORDERED: Magnesium 2 GM/NS 0.9% 100 ML 2 GM in Premix Bag 1 BAG IVPB SCH (12:30)
[2018-03-28] MEDS ORDERED: Potassium Chloride 40 MEQ in Sodium Chloride 0.9% 500 ML IVPB ONE (12:30)
[2018-03-28 14:14] LABS: Anion Gap 8 mmol/L (10-20); BUN (Urea Nitrogen) 15 mg/dL (8.4-25.7); Calc. Creatinine Clearance 92 mL/min (70-130); Calcium 7.8 mg/dL (7.8-10.44); Carbon Dioxide 26 mmol/L (22-29); Chloride 91 mmol/L (98-107); Estimated GFR-MDRD Greater than 90; Glucose 216 mg/dL (70-105); Potassium 3.2 mmol/L (3.5-5.1); Sodium 122 mmol/L (136-145)
--- NOTE | 2018-03-28 16:02 | ADD-PRG ---
ADDENDUM This is an addendum to the note of Dr. Sebastian Cedillo. Mr. Marquez is a 57-year-old male who was admitted acutely intoxicated and hyponatremic. His hyponatremia was corrected and he has since recovered from his acute intoxication. This morning, he is awake, alert, and actually in good spirits. His current serum sodium is 122, having started out at 112. He has normal renal function with a BUN of 13 and creatinine is 0.81. He will likely soon b e ready for discharge.
[2018-03-28] MEDS: metFORMIN 500 MG TAB PO SCH (17:18)
[2018-03-28] MEDS: Thiamine HCl 200 MG/2 ML VIAL SLOW IVP SCH (17:18)
[2018-03-28 17:19] LABS: Anion Gap 9 mmol/L (10-20); BUN (Urea Nitrogen) 14 mg/dL (8.4-25.7); Calc. Creatinine Clearance 95 mL/min (70-130); Calcium 8.1 mg/dL (7.8-10.44); Carbon Dioxide 28 mmol/L (22-29); Chloride 94 mmol/L (98-107); Estimated GFR-MDRD Greater than 90; Glucose 123 mg/dL (70-105); Potassium 3.4 mmol/L (3.5-5.1); Sodium 128 mmol/L (136-145)
[2018-03-28 17:23] LABS: Magnesium 2.6 mg/dL (1.6-2.6); Phosphorus 2.2 mg/dL (2.3-4.7)
[2018-03-28] MEDS ORDERED: Potassium Chloride 20 MEQ TAB PO SCH (18:00)
[2018-03-28 21:13] LABS: Anion Gap 10 mmol/L (10-20); BUN (Urea Nitrogen) 12 mg/dL (8.4-25.7); Calc. Creatinine Clearance 86 mL/min (70-130); Calcium 7.7 mg/dL (7.8-10.44); Carbon Dioxide 26 mmol/L (22-29); Chloride 95 mmol/L (98-107); Estimated GFR-MDRD Greater than 90; Glucose 198 mg/dL (70-105); Potassium 3.9 mmol/L (3.5-5.1); Sodium 127 mmol/L (136-145)
[2018-03-28] MEDS: Acetaminophen 325 MG TAB PO PRN (22:10)
[2018-03-29 01:12] LABS: Anion Gap 11 mmol/L (10-20); BUN (Urea Nitrogen) 14 mg/dL (8.4-25.7); Calc. Creatinine Clearance 95 mL/min (70-130); Calcium 7.9 mg/dL (7.8-10.44); Carbon Dioxide 25 mmol/L (22-29); Chloride 98 mmol/L (98-107); Estimated GFR-MDRD Greater than 90; Glucose 124 mg/dL (70-105); Potassium 3.7 mmol/L (3.5-5.1); Sodium 130 mmol/L (136-145)
[2018-03-29 05:39] LABS: Magnesium 2.1 mg/dL (1.6-2.6); Phosphorus 2.1 mg/dL (2.3-4.7)
[2018-03-29 07:20] LABS: Hemoglobin 11.2 g/dL (14.0-18.0); Mean Corpuscular HGB CONC 36.1 g/dL (32.0-36.0); Mean Corpuscular Hemoglobin 34.5 pg (27.0-31.0); Mean Corpuscular Volume 95.5 fl (80.0-94.0); Mean Platelet Volume 6.8 fL (7.4-10.4); Platelet Count 173 thou/uL (130-400); RBC Distribution Width 11.2 % (11.5-14.5); Red Blood Cell (RBC) Count 3.24 mill/uL (4.70-6.10)
[2018-03-29 07:32] LABS: Anion Gap 11 mmol/L (10-20); BUN (Urea Nitrogen) 12 mg/dL (8.4-25.7); Calc. Creatinine Clearance 99 mL/min (70-130); Calcium 7.8 mg/dL (7.8-10.44); Carbon Dioxide 23 mmol/L (22-29); Chloride 97 mmol/L (98-107); Estimated GFR-MDRD Greater than 90; Glucose 138 mg/dL (70-105); Potassium 3.7 mmol/L (3.5-5.1); Sodium 127 mmol/L (136-145)
--- NOTE | 2018-03-29 08:16 | PDOC.FM ---
- Subjective Subjective: No acute events overnight. Denies nausea, vomiting, diarrhea, constipation, cp, sob, and abd pain. Reports he is ready to go home. No recurrent episodes of hematemesis, coffee ground emesis or melena/BRBPR. Sodium continues to improve. - Objective Vital Signs & Weight: Vital Signs (12 hours) Temp Pulse Resp BP BP Pulse Ox 03/29/18 04:00 98.3 F 65 18 127/67 123/69 99 Weight Weight 61.779 kg I&O: 03/28/18 03/29/18 03/30/18 06:59 06:59 06:59 Intake Total 1650 720 Output Total 1500 Balance 150 720 Result Diagrams: 03/29/18 04:15 03/29/18 04:15 <Sebastian Cedillo - Last Filed: 03/29/18 10:28> - Objective Vital Signs & Weight: Vital Signs (12 hours) Temp Pulse Resp BP BP Pulse Ox 03/29/18 08:54 98.0 F 70 18 127/59 L 127/59 L 98 Weight Weight 61.779 kg I&O: 03/28/18 03/29/18 03/30/18 06:59 06:59 06:59 Intake Total 1650 720 Output Total 1500 Balance 150 720 Result Diagrams: 03/29/18 04:15 03/29/18 04:15 <Mich Fabian - Last Filed: 03/29/18 16:55> Phys Exam - Physical Examination Constitutional: NAD HEENT: PERRLA, sclera anicteric conjunctival injection Neck: no nodes, no JVD Respiratory: no wheezing, no rales, no rhonchi, clear to auscultation bilateral Cardiovascular: RRR, no significant murmur, no rub Gastrointestinal: soft, non-tender, no distention, positive bowel sounds Musculoskeletal: no edema, pulses present Neurological: non-focal, moves all 4 limbs Skin: normal turgor, cap refill <2 seconds <Sebastian Cedillo - Last Filed: 03/29/18 10:28> Dx/Plan (1) Abnormal LFTs Code(s): R79.89 - OTHER SPECIFIED ABNORMAL FINDINGS OF BLOOD CHEMISTRY Status : Acute (2) Diabetes Code(s): E11.9 - TYPE 2 DIABETES MELLITUS WITHOUT COMPLICATIONS Status: Acute QualifierTitle: Diabetes mellitus type: type 2 Diabetes mellitus alf insulin use: without alf use Diabetes mellitus complication status : with unspecified complications Qualified Code(s): E11.8 - Type 2 diabetes mellitus with unspecified complications (3) Hypokalemia Code(s): E87.6 - HYPOKALEMIA Status: Acute (4) Hyponatremia Code(s): E87.1 - HYPO-OSMOLALITY AND HYPONATREMIA Status: Acute (5) UGI bleed Code(s): K92.2 - GASTROINTESTINAL HEMORRHAGE, UNSPECIFIED Status: Acute (6) Alcohol intoxication Status: Acute QualifierTitle: Complication of substance-induced condition: with unspecified complication Qualified Code(s): F10.929 - Alcohol use, unspecified with intoxication, unspecified (7) Erosive esophagitis Code(s): K22.10 - ULCER OF ESOPHAGUS WITHOUT BLEEDING Status: Acute (8) Alcohol abuse Code(s): F10.10 - ALCOHOL ABUSE, UNCOMPLICATED Status: Chronic - Plan Plan: 1) Acute UGI bleed- protonix IV bid -Hgb stable -Cont OP protonix, PO -stable for DC -Will need further OPworkup and [facility] GI consult -pt agreed to f/u in our clinic after DC 2) Severe hyponatremia- s/p 1L NS bolus in ED followed by NS gtt. Corrected 10mEq in 24 hours. Continues to improve, AM Na 127. Asymptomatic. Normal appetite/po intake. Instructed on importance of total alcohol cessation. Stable for d/c. Will give 500cc NS bolus. 3) Acute ETOH intoxication- Resolved. Thiamine daily. ASE protocol. DC to home with librium taper. Counseled on cessation 4) Elevated LFTs- Fatty liver on RUQ US, no evidence of cirrhosis on US 5) Hypokalemia- resolved 6) Anion gap metabolic acidosis- Resolved. 7) Alcoholism- counseled on cessation. Pt agreeable to alcohol cessation. Stabvle for DC 8) DM2- check a1c, hold po meds, cont SSI. A1C 5.4. Continue home medications 9) Hypophosphatemia: Replace, stable for DC. <Sebastian Cedillo - Last Filed: 03/29/18 10:28> Attending Addendum - Attending Addendum Date/Time: 03/29/18 5986 I personally evaluated the patient and discussed the management with Dr. Cedillo. I agree with the History, Examination, Assessment and Plan documented above with any addition or exceptions noted below. <Mich Fabian - Last Filed: 03/29/18 16:55>
[2018-03-29] MEDS ORDERED: Sodium Chloride 0.9% 500 ML IV SCH (08:30)
[2018-03-29 08:58] VITALS: BP 127/59; TEMP 98
[2018-03-29] MEDS: Multivit, Therapeutic 1 TAB PO SCH (08:58)
[2018-03-29] MEDS: metFORMIN 500 MG TAB PO SCH (08:58)
--- NOTE | 2018-03-30 10:12 | PQF ---
SHERYL HUITRON GABRIEL MD [id number] [facility]-[id number] CLINICAL DOCUMENTATION CLARIFICATION FORM: POST DISCHARGE Please exercise your independent, professional judgment in responding to the clarification form. Clinical indicators are provided on the bottom of this form for your review. Thank you. Please check appropriate box(s): [ x ] GI bleed due to Erosive Esophagitis (Ulcer of Esophagus with bleeding) [ ] GI bleed - unkown etiology [ ] Other diagnosis [ ] Unable to determine In addition, please specify: Present on Admission (POA): [ x ] Yes [ ] No [ ] Unable to determine For continuity of documentation, please document condition throughout progress notes and discharge summary. Thank You. CLINICAL INDICATORS - SIGNS / SYMPTOMS / LABS Acute GI Bleed - given history and positive finding of erosive esophagitis in the past this is most likely the source - PN 03/28/2018 EGD's in the past ,last showed severe erosive esophagitis with ulcer with visible vessel - HP 03/27/18 RISK FACTORS Alcoholism with ETOX intoxication - PN TREATMENTS: Protonix IV - PN 03/29/2018, PN 03/28/2018 (This form is maintained as a part of the permanent medical record) 2014 [employer] All Rights Reserved Tamy Robbins, CCS, CUSTOMER LEADER, CASC [email or web address]
[2018-03-30 12:15] LABS: Hep B Surface AG-Rflx Sendout Negative (Negative); Hepatitis B Core IgM AB Negative (Negative); Hepatitis B Core Total Negative (Negative); Hepatitis B Surface AB-Sendout Non Reactive (.)
== END 2018-03-29 13:12 | disposition home or self-care (01) | DRG 381 ==
LOC: ERS 08:26 → 2NO 11:45
PROVIDERS: ADMIT Family Medicine; ATTEND Family Medicine
DX: K22.11 Ulcer of esophagus with bleeding (principal); E87.1 Hypo-osmolality and hyponatremia; E87.2 Acidosis; E87.6 Hypokalemia; E83.39 Other disorders of phosphorus metabolism; F10.129 Alcohol abuse with intoxication, unspecified; F10.229 Alcohol dependence with intoxication, unspecified
CPT/HCPCS: 36415; 36416; 76705; 80048; 80053; 80074; 80306; 80307; 81003; 82140; 82977; 83036; 83690; 83735; 84100; 85025; 85027; 85610; 85730; 86704; 86705; 86706; 86707; 86780; 87340; 87350; 87389; 96361; 96365; A4216; C9113; J2060; J2354; J3411; J3475; J3480; J7042; J7050; Q0162

== ENCOUNTER 2019-12-21 16:26 | Outpatient (CLI) | payer OTHER ==
--- NOTE | 2019-12-21 16:58 | RAD ---
2 views chest: 12/21/2019 COMPARISON: 04/29/2015 HISTORY: Cough FINDINGS: Heart and mediastinal contours are stable. There is no pneumothorax or pleural fluid and no focal consolidation or alveolar edema. There is multilevel disc space narrowing with degenerative endplate change and anterior osteophyte formation. Stable deformity of upper left-sided ribs again no inna. IMPRESSION: No acute findings-stable appearance of the chest.
== END 2019-12-21 16:27 | disposition home or self-care (01) ==
LOC: BICRAD 16:26
PROVIDERS: ATTEND Family Medicine
DX: R05 Cough (principal)
CPT/HCPCS: 71046

== ENCOUNTER 2023-06-25 08:43 | Inpatient (IN) | payer OTHER, SELFPAY ==
[2023-06-25] MEDS ORDERED: Morphine 4 MG/ML VIAL ONE (09:10)
[2023-06-25] MEDS ORDERED: Ondansetron PF 4 MG/2 ML Vial ONE (09:10)
[2023-06-25] MEDS ORDERED: Cefepime 2 GM VIAL ONE (09:19)
[2023-06-25] MEDS ORDERED: Pantoprazole 80 MG in Sodium Chloride 0.9% 100 ML IVP SCH (09:45)
[2023-06-25] MEDS ORDERED: Pantoprazole 80 MG, Admixture Fee 1 EACH in Sodium Chloride 0.9% 100 ML IVP SCH (09:45)
[2023-06-25 10:17] LABS: ALT (SGPT) 29 U/L (8-55); AST (SGOT) 27 U/L (5-34); Alkaline Phosphatase 64 U/L (40-110); Anion Gap 29 mmol/L (10-20); BUN (Urea Nitrogen) 38 mg/dL (8.4-25.7); Bilirubin, Total 1.5 mg/dL (0.2-1.2); Calc. Creatinine Clearance 0 mL/min (70-130); Calcium 8.3 mg/dL (7.8-10.44); Carbon Dioxide 14 mmol/L (23-31); Chloride 81 mmol/L (98-107); Estimated GFR 62; Globulin 2.9 g/dL (2.4-3.5); Lipase 26 U/L (8-78); Potassium 4.1 mmol/L (3.5-5.1); Protein, Total 6.9 g/dL (5.8-8.1); Sodium 120 mmol/L (136-145)
[2023-06-25 10:20] LABS: Troponin I Less than 0.010 ng/mL (< 0.028)
[2023-06-25 10:21] LABS: Bacteria/HPF None Seen HPF (None Seen); Bilirubin Negative (Negative); Blood, Urine Negative (Negative); CAUTI Indications for Culture Dysuria,urgency,freq; Clarity Clear (Clear); Glucose, Urine (Dipstick) Greater than 1000 mg/dL (Negative); Ketone, Urine 80 mg/dL (Negative); Leukocyte Negative Leu/uL (Negative); Nitrite Negative (Negative); Protein, Urine (Dipstick) Negative (Neg-Trace); RBC/HPF 0-3 HPF (0-3); Squamous Epithelial None Seen HPF (0-3); Urobilinogen Normal mg/dL (Less than 2); WBC/HPF 0-3 HPF (0-3)
[2023-06-25 10:21] LABS: Acetaminophen Less than 10 mcg/mL (10.0-30.0); Alcohol Less than 10.0 mg/dL (Less than 10); Salicylate Less than 8.0 mg/dL (15.0-30.0)
[2023-06-25 10:24] LABS: Urine Culture Reflex No No
[2023-06-25 10:24] LABS: Glucose 436 mg/dL (80-115)
[2023-06-25 10:50] LABS: %Basophils 0.1 % (0.0-1.0); Mean Corpuscular Hemoglobin 33.5 pg (27.0-31.0); RBC Distribution Width 11.6 % (11.5-14.5)
[2023-06-25 10:53] LABS: Base Excess -9.2 mEq/L (-2.0 to +3.0); Calcium, Ionized (venous) 0.97 mmol/L (1.16-1.32); Chloride (VBG) 82 mmol/L (98-106); Hematocrit-VBG 37 % (42.0-52.0); Hemoglobin (Hb) 12.5 g/dL (13.1-17.2); Potassium (VBG) 4.01 mmol/L (3.70-5.30); Sodium 121.2 mmol/L (133-146); pH (venous) 7.427 (7.32-7.43)
[2023-06-25 11:08] LABS: #Monocytes 0.7 thou/uL (0.11-0.59); #Neutrophils 10.8 thou/uL (1.40-6.50); %Monocytes 5.1 % (0.0-10.0); %Neutrophils 85.4 % (42.0-75.0); Hematocrit 29.9 % (42.0-52.0); Hemoglobin 11.4 g/dL (14.0-18.0); Mean Corpuscular HGB CONC 38.1 g/dL (32.0-36.0); Mean Corpuscular Volume 87.9 fl (78.0-98.0); Mean Platelet Volume 9.8 fL (7.4-10.4); Platelet Count 204 10x3/uL (130-400); White Blood Cell (WBC) Count 12.7 10x3/uL (4.8-10.8)
[2023-06-25] MEDS ORDERED: Insulin Regular 300 UNITS/3 ML VIAL ONE (12:56)
[2023-06-25] MEDS ORDERED: Calcium Carbonate 500 MG ChewTAB PO PRN (13:04)
[2023-06-25] MEDS ORDERED: Ondansetron PF 4 MG/2 ML Vial IVP PRN (13:04)
[2023-06-25] MEDS ORDERED: Senokot S 8.6-50 MG TAB PO PRN (13:04)
[2023-06-25] MEDS ORDERED: Dextrose 50% Abboject 50 ML SYRINGE SLOW IVP PRN (13:25)
[2023-06-25] MEDS ORDERED: Dextrose 5% in Water 1,000 ML IV PRN (13:25)
[2023-06-25] MEDS ORDERED: Glucagon 1 MG/ML KIT IM PRN (13:25)
[2023-06-25] MEDS ORDERED: Lorazepam 1 MG TAB PO PRN (13:26)
[2023-06-25] MEDS ORDERED: Electrolyte Replacement Protocol 1 EACH FS SCH (13:30)
[2023-06-25] MEDS ORDERED: Lactated Ringer's 1,000 ML IV SCH (13:30)
[2023-06-25] MEDS ORDERED: Multivit, Therapeutic 1 TAB PO SCH (13:45)
[2023-06-25] MEDS ORDERED: Folic Acid 1 MG TAB PO SCH (13:45)
[2023-06-25 14:19] VITALS: BMI 26.2
[2023-06-25 14:40] LABS: INR-International Normal Ratio 1.2; Prothrombin Time 15.5 sec (12.0-14.7)
[2023-06-25 14:49] LABS: Anion Gap 19 mmol/L (10-20); BUN (Urea Nitrogen) 29 mg/dL (8.4-25.7); Calc. Creatinine Clearance 75 mL/min (70-130); Calcium 7.7 mg/dL (7.8-10.44); Carbon Dioxide 19 mmol/L (23-31); Chloride 93 mmol/L (98-107); Estimated GFR 91; Glucose 227 mg/dL (80-115); Potassium 3.6 mmol/L (3.5-5.1); Sodium 127 mmol/L (136-145)
[2023-06-25] MEDS ORDERED: Potassium Chloride 20 MEQ TAB PO SCH (15:15)
[2023-06-25] MEDS ORDERED: Sodium Chloride 0.9% 500 ML IV SCH (15:15)
[2023-06-25] MEDS: Thiamine HCl 200 MG/2 ML VIAL SLOW IVP SCH (15:20)
[2023-06-25] MEDS: Acetaminophen 325 MG TAB PO PRN ×2 (15:21→21:33)
[2023-06-25 15:37] LABS: Amphetamine Not Detected (NotDetected); Barbiturates Screen Not Detected (NotDetected); Benzodiazepine Screen Not Detected (NotDetected); Cocaine Metabolite Screen Not Detected (NotDetected); Methadone Not Detected (NotDetected); Methamphetamine Not Detected (NotDetected); Opiate Screen Not Detected (NotDetected); Oxycodone Screen Not Detected (NotDetected); Phencyclidine (PCP) Not Detected (NotDetected); THC/Cannabinoid Screen Not Detected (NotDetected); Tricyclic Screen Not Detected (NotDetected)
[2023-06-25 16:06] LABS: Anion Gap 17 mmol/L (10-20); BUN (Urea Nitrogen) 27 mg/dL (8.4-25.7); Calc. Creatinine Clearance 78 mL/min (70-130); Calcium 7.6 mg/dL (7.8-10.44); Carbon Dioxide 20 mmol/L (23-31); Chloride 92 mmol/L (98-107); Estimated GFR 95; Glucose 293 mg/dL (80-115); Magnesium 1.9 mg/dL (1.6-2.6); Potassium 4.1 mmol/L (3.5-5.1); Sodium 125 mmol/L (136-145)
[2023-06-25] MEDS: Lactated Ringer's 1,000 ML IV SCH (16:57)
[2023-06-25] MEDS: HumaLOG 300 UNITS/3 ML VIAL SC PRN (17:09)
[2023-06-25 17:46] LABS: Hematocrit 24.1 % (42.0-52.0); Hemoglobin 8.9 g/dL (14.0-18.0)
[2023-06-25] MEDS ORDERED: Magnesium 2 GM/50 ML(in water) 2 GM in Premix Bag 1 BAG IVPB SCH (21:00)
[2023-06-25] MEDS: Pantoprazole 40 MG VIAL IVP SCH (21:34)
[2023-06-25 23:43] LABS: Hematocrit 22.2 % (42.0-52.0); Hemoglobin 8.2 g/dL (14.0-18.0)
[2023-06-26] MEDS: HumaLOG 300 UNITS/3 ML VIAL SC PRN ×4 (00:18→23:19)
[2023-06-26] MEDS: Lactated Ringer's 1,000 ML IV SCH (01:30)
[2023-06-26 03:57] LABS: #Monocytes 0.8 thou/uL (0.11-0.59); #Neutrophils 6.3 thou/uL (1.40-6.50); %Basophils 0.1 % (0.0-1.0); %Lymphocytes 19.4 % (21.0-51.0); %Neutrophils 71.2 % (42.0-75.0); Hematocrit 23.1 % (42.0-52.0); Hemoglobin 8.4 g/dL (14.0-18.0); Mean Corpuscular HGB CONC 36.4 g/dL (32.0-36.0); Mean Corpuscular Hemoglobin 33.2 pg (27.0-31.0); Mean Platelet Volume 10.4 fL (7.4-10.4); Platelet Count 150 10x3/uL (130-400); RBC Distribution Width 11.9 % (11.5-14.5); Red Blood Cell (RBC) Count 2.53 mill/uL (4.70-6.10); White Blood Cell (WBC) Count 8.9 10x3/uL (4.8-10.8)
[2023-06-26 04:03] LABS: Mean Corpuscular Volume 91.3 fl (78.0-98.0)
[2023-06-26 04:10] LABS: INR-International Normal Ratio 1.2; Prothrombin Time 15.3 sec (12.0-14.7)
[2023-06-26 04:16] LABS: Bilirubin, Direct 0.5 mg/dL (0.1-0.3); Magnesium 2.2 mg/dL (1.6-2.6)
[2023-06-26 04:17] LABS: ALT (SGPT) 21 U/L (8-55); AST (SGOT) 28 U/L (5-34); Alkaline Phosphatase 48 U/L (40-110); Anion Gap 15 mmol/L (10-20); BUN (Urea Nitrogen) 17 mg/dL (8.4-25.7); Bilirubin, Total 1.5 mg/dL (0.2-1.2); Calc. Creatinine Clearance 102 mL/min (70-130); Calcium 7.3 mg/dL (7.8-10.44); Carbon Dioxide 20 mmol/L (23-31); Chloride 96 mmol/L (98-107); Estimated GFR 105; Globulin 2.2 g/dL (2.4-3.5); Glucose 188 mg/dL (80-115); Potassium 3.8 mmol/L (3.5-5.1); Protein, Total 5.2 g/dL (5.8-8.1); Sodium 127 mmol/L (136-145)
[2023-06-26 04:23] LABS: Hemoglobin A1c 7.9 % (4.0-6.0)
[2023-06-26] MEDS: Acetaminophen 325 MG TAB PO PRN ×3 (06:09→21:05)
[2023-06-26] MEDS: Multivit, Therapeutic 1 TAB PO SCH (08:12)
[2023-06-26] MEDS: Pantoprazole 40 MG VIAL IVP SCH ×2 (08:12→21:08)
[2023-06-26] MEDS: Folic Acid 1 MG TAB PO SCH (08:17)
[2023-06-26] MEDS ORDERED: Lidocaine 1% PF 5 ML VIAL ONE (10:00)
[2023-06-26] MEDS ORDERED: PROPOFOL 200 MG/20 ML VIAL ONE (10:00)
[2023-06-26] MEDS ORDERED: Sodium Bicarbonate Tab 325 MG TAB PO SCH (10:30)
[2023-06-26] MEDS ORDERED: Ondansetron HCl/PF 4 MG/2 ML Vial IVP PRN (10:35)
[2023-06-26] MEDS: Sodium Chloride 0.9% 1,000 ML IV SCH ×2 (11:09→21:07)
[2023-06-26] MEDS: Thiamine HCl 200 MG/2 ML VIAL SLOW IVP SCH (12:43)
[2023-06-26] MEDS ORDERED: Lorazepam 1 MG TAB PO PRN (13:26)
[2023-06-26] MEDS: Sodium Bicarbonate Tab 325 MG TAB PO SCH ×2 (15:00→21:07)
[2023-06-26 17:41] LABS: Anion Gap 13 mmol/L (10-20); BUN (Urea Nitrogen) 13 mg/dL (8.4-25.7); Calc. Creatinine Clearance 96 mL/min (70-130); Calcium 7.4 mg/dL (7.8-10.44); Carbon Dioxide 23 mmol/L (23-31); Chloride 95 mmol/L (98-107); Estimated GFR 103; Glucose 232 mg/dL (80-115); Potassium 3.4 mmol/L (3.5-5.1); Sodium 128 mmol/L (136-145)
[2023-06-26] MEDS ORDERED: Potassium Chloride 20 MEQ TAB PO SCH (21:00)
[2023-06-26] MEDS ORDERED: Melatonin 3 MG TAB PO PRN (23:57)
[2023-06-27] MEDS: Acetaminophen 325 MG TAB PO PRN (04:32)
[2023-06-27] MEDS: HumaLOG 300 UNITS/3 ML VIAL SC PRN ×2 (06:00→10:58)
[2023-06-27 07:03] LABS: #Monocytes 0.4 thou/uL (0.11-0.59); #Neutrophils 3.1 thou/uL (1.40-6.50); %Basophils 0.5 % (0.0-1.0); %Eosinophils 0.4 % (0.0-10.0); %Lymphocytes 35.9 % (21.0-51.0); %Monocytes 7.8 % (0.0-10.0); %Neutrophils 54.5 % (42.0-75.0); Hematocrit 22.5 % (42.0-52.0); Hemoglobin 8.2 g/dL (14.0-18.0); Mean Corpuscular HGB CONC 36.4 g/dL (32.0-36.0); Mean Corpuscular Hemoglobin 33.1 pg (27.0-31.0); Mean Corpuscular Volume 90.7 fl (78.0-98.0); Mean Platelet Volume 9.3 fL (7.4-10.4); Platelet Count 161 10x3/uL (130-400); RBC Distribution Width 11.9 % (11.5-14.5); Red Blood Cell (RBC) Count 2.48 mill/uL (4.70-6.10); White Blood Cell (WBC) Count 5.6 10x3/uL (4.8-10.8)
[2023-06-27] MEDS: Sodium Chloride 0.9% 1,000 ML IV SCH (07:15)
[2023-06-27 07:33] LABS: ALT (SGPT) 26 U/L (8-55); AST (SGOT) 28 U/L (5-34); Alkaline Phosphatase 47 U/L (40-110); Anion Gap 11 mmol/L (10-20); BUN (Urea Nitrogen) 10 mg/dL (8.4-25.7); Bilirubin, Total 0.6 mg/dL (0.2-1.2); Calc. Creatinine Clearance 102 mL/min (70-130); Calcium 7.3 mg/dL (7.8-10.44); Carbon Dioxide 25 mmol/L (23-31); Chloride 96 mmol/L (98-107); Estimated GFR 106; Globulin 2.2 g/dL (2.4-3.5); Glucose 204 mg/dL (80-115); Potassium 3.1 mmol/L (3.5-5.1); Protein, Total 5.2 g/dL (5.8-8.1); Sodium 129 mmol/L (136-145)
[2023-06-27] MEDS ORDERED: Potassium Chloride 20 MEQ TAB PO SCH (09:00)
[2023-06-27] MEDS: Folic Acid 1 MG TAB PO SCH (09:28)
[2023-06-27] MEDS: Sodium Bicarbonate Tab 325 MG TAB PO SCH ×2 (09:28→14:47)
[2023-06-27] MEDS: Multivit, Therapeutic 1 TAB PO SCH (09:28)
[2023-06-27] MEDS: Pantoprazole 40 MG VIAL IVP SCH (09:28)
[2023-06-27] MEDS ORDERED: Sodium Chloride 0.9% 1,000 ML IV SCH ×2 (10:30)
[2023-06-27] MEDS ORDERED: Sodium Chloride 1 GM TAB PO SCH (10:30)
[2023-06-27] MEDS ORDERED: Lorazepam 1 MG TAB PO PRN (13:26)
[2023-06-27 13:52] VITALS: TEMP 97.9
[2023-06-27] MEDS: Thiamine HCl 200 MG/2 ML VIAL SLOW IVP SCH (14:46)
[2023-06-27 15:19] VITALS: BP 129/94
[2023-06-27 15:27] LABS: Anion Gap 13 mmol/L (10-20); BUN (Urea Nitrogen) 12 mg/dL (8.4-25.7); Calc. Creatinine Clearance 82 mL/min (70-130); Calcium 7.7 mg/dL (7.8-10.44); Carbon Dioxide 22 mmol/L (23-31); Chloride 99 mmol/L (98-107); Estimated GFR 99; Glucose 319 mg/dL (80-115); Magnesium 1.8 mg/dL (1.6-2.6); Potassium 4.1 mmol/L (3.5-5.1); Sodium 130 mmol/L (136-145)
[2023-06-28] MEDS ORDERED: Thiamine 100 MG TAB PO SCH (09:00)
[2023-06-28] MEDS ORDERED: Lorazepam 0.5 MG TAB PO PRN (13:26)
== END 2023-06-27 17:30 | disposition home or self-care (01) | DRG 381 ==
LOC: ERS 08:43 → SUATTDRO 08:43 → IMCU/EMU 13:41
PROVIDERS: ADMIT Internal Medicine; ATTEND Internal Medicine
PROC: 0DJ08ZZ Inspection of Upper Intestinal Tract, Via Natural or Artificial Opening Endoscopic (ICD-10-PCS; principal; 2023-06-26)
DX: K22.11 Ulcer of esophagus with bleeding (principal); D62 Acute posthemorrhagic anemia; S06.30AA Unspecified focal traumatic brain injury with loss of consciousness status unknown, initial encounter; E87.1 Hypo-osmolality and hyponatremia; E87.20 Acidosis, unspecified; N17.9 Acute kidney failure, unspecified; D63.8 Anemia in other chronic diseases classified elsewhere; F10.10 Alcohol abuse, uncomplicated; E11.65 Type 2 diabetes mellitus with hyperglycemia; I10 Essential (primary) hypertension; F41.9 Anxiety disorder, unspecified; F32.A Depression, unspecified; F17.220 Nicotine dependence, chewing tobacco, uncomplicated; E86.9 Volume depletion, unspecified; W19.XXXA Unspecified fall, initial encounter; T73.0XXA Starvation, initial encounter; K31.89 Other diseases of stomach and duodenum; Z79.84 Long term (current) use of oral hypoglycemic drugs; Z79.899 Other long term (current) drug therapy; Z98.890 Other specified postprocedural states; Z91.148 Patient's other noncompliance with medication regimen for other reason; Y92.89 Other specified places as the place of occurrence of the external cause
CPT/HCPCS: 36415; 36416; 70450; 71045; 74177; 80053; 80306; 80307; 81001; 82248; 82274; 82805; 83036; 83605; 83690; 83735; 84484; 85025; 85610; 86850; 86900; 86901; 87040; 87086; 93005; C9113; J0692; J1815; J2270; J2405; J2704; J3411; J3475; J3490; J7030; J7050; J7120

== ENCOUNTER 2024-09-06 10:05 | Inpatient (IN) | payer SELFPAY ==
[2024-09-06 10:48] LABS: #Basophils Less than 0.03 10x3/uL (0.0-0.2); #Eosinophils Less than 0.03 10x3/uL (0.0-0.7); %Basophils 0.1 % (0.0-1.0); %Lymphocytes 6.4 % (21.0-51.0); %Monocytes 5.1 % (0.0-10.0); %Neutrophils 87.9 % (42.0-75.0); Hematocrit 40.2 % (42.0-52.0); Hemoglobin 14.5 g/dL (14.0-18.0); Mean Corpuscular HGB CONC 36.1 g/dL (32.0-36.0); Mean Corpuscular Hemoglobin 29.4 pg (27.0-31.0); Mean Corpuscular Volume 81.4 fL (78.0-98.0); Mean Platelet Volume 8.9 fL (7.4-10.4); Platelet Count 218 10x3/uL (130-400); RBC Distribution Width 13.2 % (11.5-14.5); Red Blood Cell (RBC) Count 4.94 mill/uL (4.70-6.10)
[2024-09-06 11:00] LABS: INR-International Normal Ratio 1.1; PTT 25.1 sec (22.9-36.1); Prothrombin Time 14.2 sec (12.0-14.7)
[2024-09-06 11:11] LABS: ALT (SGPT) 26 U/L (8-55); AST (SGOT) 42 U/L (5-34); Albumin 3.8 g/dL (3.4-4.8); Alkaline Phosphatase 76 U/L (40-110); Anion Gap 24 mmol/L (10-20); BUN (Urea Nitrogen) 23 mg/dL (8.4-25.7); Bilirubin, Total 1.9 mg/dL (0.2-1.2); Calc. Creatinine Clearance 0 mL/min (70-130); Calcium 8.8 mg/dL (7.8-10.44); Carbon Dioxide 19 mmol/L (23-31); Chloride 85 mmol/L (98-107); Estimated GFR 95; Globulin 4.2 g/dL (2.4-3.5); Glucose 323 mg/dL (80-115); Magnesium 1.7 mg/dL (1.6-2.6); Sodium 123 mmol/L (136-145)
[2024-09-06 11:23] LABS: Troponin I Less than 0.010 ng/mL (< 0.028)
[2024-09-06] MEDS ORDERED: Ondansetron PF 4 MG/2 ML Vial ONE (11:25)
[2024-09-06] MEDS ORDERED: Folic Acid 1 MG TAB ONE (11:45)
[2024-09-06] MEDS ORDERED: Thiamine HCl 200 MG/2 ML VIAL ONE (11:45)
[2024-09-06 12:26] LABS: Bacteria/HPF None Seen HPF (None Seen); Bilirubin Negative (Negative); Blood, Urine 1+ (Negative); CAUTI Indications for Culture Alt mental st,lethar; Clarity Clear (Clear); Glucose, Urine (Dipstick) Greater than 1000 mg/dL (Negative); Ketone, Urine 60 mg/dL (Negative); Leukocyte Negative Leu/uL (Negative); Nitrite Negative (Negative); Protein, Urine (Dipstick) 20 mg/dL (Neg-Trace); Specific Gravity, Urine 1.023 (1.002-1.036); Squamous Epithelial 0-3 HPF (0-3); Urobilinogen Normal mg/dL (Less than 2); WBC/HPF None Seen HPF (0-3)
[2024-09-06 12:34] LABS: Urine Culture Reflex No No
[2024-09-06 13:48] LABS: Actual Bicarbonate (HCO3a) 24.9 mEq/L (22-28); Analyzer IN Cardio ER; Base Excess (BEa) 2.6 mEq/L (-2.0 to +3.0); CO2 Tension 31.6 mmHg (35.0-45.0); Calcium, Ionized (arterial) 1.05 mmol/L (1.12-1.30); Carboxyhemoglobin (COHb) 0.9 gm% (0.0-3.0); Hematocrit-ABG 40 % (42.0-52.0); Hemoglobin (Hb) 13.7 g/dL (14.0-18.0); O2 Tension (PaO2), arterial 66.6 mmHg (> 80.0); Potassium - ABG Lab 4.35 mmol/L (3.70-5.30); pH, Arterial 7.514 (7.35-7.45)
[2024-09-06] MEDS ORDERED: Lorazepam 2 MG/ML VIAL ONE (13:48)
[2024-09-06 13:49] LABS: Puncture Site LR
[2024-09-06 14:03] LABS: Acetaminophen Less than 10 mcg/mL (Less than 10); Alcohol Less than 10.0 mg/dL (Less than 10); Salicylate Less than 8.0 mg/dL (Less than 8.0)
[2024-09-06 14:37] LABS: Amphetamine Not Detected (NotDetected); Barbiturates Screen Not Detected (NotDetected); Benzodiazepine Screen Not Detected (NotDetected); Cocaine Metabolite Screen Not Detected (NotDetected); Methadone Not Detected (NotDetected); Methamphetamine Not Detected (NotDetected); Opiate Screen Not Detected (NotDetected); Oxycodone Screen Not Detected (NotDetected); Phencyclidine (PCP) Not Detected (NotDetected); THC/Cannabinoid Screen Not Detected (NotDetected); Tricyclic Screen Not Detected (NotDetected)
[2024-09-06] MEDS ORDERED: Dextrose 50% Abboject 50 ML SYRINGE SLOW IVP PRN (14:37)
[2024-09-06] MEDS ORDERED: Glucagon 1 MG/ML KIT IM PRN (14:37)
[2024-09-06] MEDS ORDERED: Dextrose 5% in Water 1,000 ML IV PRN (14:37)
[2024-09-06] MEDS ORDERED: Ondansetron ODT 4 MG TAB PO PRN (14:37)
[2024-09-06] MEDS ORDERED: Lorazepam 1 MG TAB PO PRN (14:37)
[2024-09-06] MEDS ORDERED: Electrolyte Replacement Protocol 1 EACH FS SCH (14:45)
[2024-09-06 16:42] VITALS: BMI 27.3
[2024-09-06] MEDS: Multivit, Therapeutic 1 TAB PO SCH (17:06)
[2024-09-06] MEDS: Lorazepam 1 MG TAB PO SCH (17:06)
[2024-09-06] MEDS: Sodium Chloride 0.9% 1,000 ML IV SCH (17:09)
[2024-09-06] MEDS: Ondansetron PF 4 MG/2 ML Vial IVP PRN (17:21)
[2024-09-06] MEDS: Insulin Regular, Human 100 UNIT/ML 10 ML VIAL SC PRN (17:34)
[2024-09-06 17:57] LABS: Magnesium 1.8 mg/dL (1.6-2.6)
[2024-09-06] MEDS: glipiZIDE 10 MG TAB PO SCH (18:04)
[2024-09-06] MEDS: Famotidine/PF 20 mg/2ml Vial SLOW IVP SCH (21:07)
[2024-09-06] MEDS: Magnesium 2 GM/50 ML(in water) 2 GM in Premix 1 BAG IVPB SCH (21:07)
[2024-09-07 04:42] LABS: #Basophils Less than 0.03 10x3/uL (0.0-0.2); #Eosinophils Less than 0.03 10x3/uL (0.0-0.7); %Basophils 0.2 % (0.0-1.0); %Eosinophils 0.1 % (0.0-10.0); %Lymphocytes 15.2 % (21.0-51.0); %Monocytes 8.9 % (0.0-10.0); %Neutrophils 75.4 % (42.0-75.0); Hematocrit 32.5 % (42.0-52.0); Hemoglobin 11.3 g/dL (14.0-18.0); Mean Corpuscular HGB CONC 34.8 g/dL (32.0-36.0); Mean Corpuscular Hemoglobin 29.2 pg (27.0-31.0); Mean Platelet Volume 9.6 fL (7.4-10.4); Platelet Count 185 10x3/uL (130-400); RBC Distribution Width 13.6 % (11.5-14.5); Red Blood Cell (RBC) Count 3.87 mill/uL (4.70-6.10)
[2024-09-07 04:50] LABS: Hemoglobin A1c 7.9 % (4.0-6.0)
[2024-09-07 05:00] LABS: ALT (SGPT) 20 U/L (8-55); AST (SGOT) 33 U/L (5-34); Albumin 2.9 g/dL (3.4-4.8); Alkaline Phosphatase 57 U/L (40-110); Anion Gap 12 mmol/L (10-20); BUN (Urea Nitrogen) 15 mg/dL (8.4-25.7); Bilirubin, Total 1.4 mg/dL (0.2-1.2); CK (CPK) 938 U/L (30-200); Calc. Creatinine Clearance 92 mL/min (70-130); Calcium 7.6 mg/dL (7.8-10.44); Carbon Dioxide 23 mmol/L (23-31); Chloride 100 mmol/L (98-107); Estimated GFR 100; Globulin 3.2 g/dL (2.4-3.5); Glucose 168 mg/dL (80-115); Magnesium 2.4 mg/dL (1.6-2.6); Protein, Total 6.1 g/dL (5.8-8.1); Sodium 131 mmol/L (136-145)
[2024-09-07] MEDS: Thiamine 100 MG TAB PO SCH (09:43)
[2024-09-07] MEDS: FLU (Fluarix Triv) TS24-25(6MOS UP)/PF 45 MCG/0.5 ML Syringe IM ONE (09:43)
[2024-09-07] MEDS: Enoxaparin 40 MG (0.4 mL) SYRINGE SC SCH (09:44)
[2024-09-07] MEDS: Multivit, Therapeutic 1 TAB PO SCH (09:44)
[2024-09-07] MEDS: Folic Acid 1 MG TAB PO SCH (09:44)
[2024-09-07] MEDS: glipiZIDE 10 MG TAB PO SCH (09:48)
[2024-09-07 12:12] VITALS: BMI 27.4
[2024-09-07] MEDS: Lorazepam 1 MG TAB PO PRN (18:52)
[2024-09-08 09:02] LABS: #Basophils Less than 0.03 10x3/uL (0.0-0.2); #Eosinophils Less than 0.03 10x3/uL (0.0-0.7); %Basophils 0.2 % (0.0-1.0); %Eosinophils 0.4 % (0.0-10.0); %Lymphocytes 21.9 % (21.0-51.0); %Monocytes 8.4 % (0.0-10.0); %Neutrophils 68.7 % (42.0-75.0); Hematocrit 32.3 % (42.0-52.0); Hemoglobin 11.1 g/dL (14.0-18.0); Mean Corpuscular HGB CONC 34.4 g/dL (32.0-36.0); Mean Corpuscular Hemoglobin 29.1 pg (27.0-31.0); Mean Corpuscular Volume 84.6 fL (78.0-98.0); Platelet Count 176 10x3/uL (130-400); RBC Distribution Width 13.3 % (11.5-14.5); Red Blood Cell (RBC) Count 3.82 mill/uL (4.70-6.10)
[2024-09-08 09:25] LABS: Anion Gap 11 mmol/L (10-20); BUN (Urea Nitrogen) 9 mg/dL (8.4-25.7); Calc. Creatinine Clearance 109 mL/min (70-130); Calcium 7.7 mg/dL (7.8-10.44); Carbon Dioxide 22 mmol/L (23-31); Chloride 103 mmol/L (98-107); Estimated GFR 106; Glucose 278 mg/dL (80-115); Potassium 3.7 mmol/L (3.5-5.1); Sodium 132 mmol/L (136-145)
[2024-09-08] MEDS: chlordiazePOXIDE HCl 25 MG CAP PO SCH (10:09)
[2024-09-08] MEDS: Acetaminophen 325 MG TAB PO PRN (14:33)
[2024-09-08] MEDS ORDERED: Lorazepam 1 MG TAB PO PRN (14:37)
[2024-09-08] MEDS: Lorazepam 0.5 MG TAB PO SCH (16:10)
[2024-09-09 03:33] LABS: #Basophils Less than 0.03 10x3/uL (0.0-0.2); %Basophils 0.4 % (0.0-1.0); %Eosinophils 1.5 % (0.0-10.0); %Lymphocytes 31.5 % (21.0-51.0); %Monocytes 8.7 % (0.0-10.0); %Neutrophils 57.5 % (42.0-75.0); Hematocrit 31.7 % (42.0-52.0); Hemoglobin 10.8 g/dL (14.0-18.0); Mean Corpuscular HGB CONC 34.1 g/dL (32.0-36.0); Mean Platelet Volume 9.3 fL (7.4-10.4); Platelet Count 191 10x3/uL (130-400); RBC Distribution Width 13.2 % (11.5-14.5); Red Blood Cell (RBC) Count 3.73 mill/uL (4.70-6.10)
[2024-09-09 03:49] LABS: Anion Gap 12 mmol/L (10-20); BUN (Urea Nitrogen) 11 mg/dL (8.4-25.7); Calc. Creatinine Clearance 104 mL/min (70-130); Carbon Dioxide 21 mmol/L (23-31); Chloride 105 mmol/L (98-107); Estimated GFR 104; Glucose 284 mg/dL (80-115); Potassium 3.6 mmol/L (3.5-5.1); Sodium 134 mmol/L (136-145)
[2024-09-09] MEDS: chlordiazePOXIDE HCl 25 MG CAP PO SCH (10:06)
[2024-09-09 11:58] VITALS: BP 139/84; TEMP 98.9
[2024-09-09] MEDS ORDERED: Lorazepam 0.5 MG TAB PO PRN (14:37)
== END 2024-09-09 13:00 | disposition home or self-care (01) | DRG 897 ==
LOC: ERS 10:05 → 2NO 14:48
PROVIDERS: ADMIT Internal Medicine; ATTEND Internal Medicine
DX: F10.139 Alcohol abuse with withdrawal, unspecified (principal); M62.82 Rhabdomyolysis; E87.20 Acidosis, unspecified; E87.1 Hypo-osmolality and hyponatremia; E11.9 Type 2 diabetes mellitus without complications; I10 Essential (primary) hypertension; F41.9 Anxiety disorder, unspecified; F32.A Depression, unspecified; E88.89 Other specified metabolic disorders; T73.0XXA Starvation, initial encounter; Y90.0 Blood alcohol level of less than 20 mg/100 ml; E86.0 Dehydration
CPT/HCPCS: 36415; 36416; 70450; 71045; 72125; 80048; 80053; 80306; 80307; 81001; 82010; 82550; 82805; 83036; 83605; 83735; 83880; 83930; 84443; 84484; 85025; 85610; 85730; 93005; 96361; 96374; 96375; J1650; J1815; J2060; J2405; J3411; J3475; J3490; J7030

== ENCOUNTER 2025-07-06 02:18 | Emergency (ER) | payer SELFPAY ==
[2025-07-06] MEDS ORDERED: Ketorolac Tromethamine 30 MG (1 mL) VIAL ONE (03:41)
[2025-07-06 05:11] LABS: ALT (SGPT) 83 U/L (Less than 45); AST (SGOT) 118 U/L (11-34); Albumin 3.1 g/dL (3.1-4.5); Alkaline Phosphatase 61 U/L (40-110); Anion Gap 14 mmol/L (10-20); BUN (Urea Nitrogen) 5 mg/dL (8.4-25.7); Bilirubin, Total 0.5 mg/dL (0.3-1.2); Calc. Creatinine Clearance 0 mL/min (70-130); Calcium 7.3 mg/dL (7.8-10.44); Carbon Dioxide 22 mmol/L (23-31); Chloride 91 mmol/L (98-107); Globulin 2.9 g/dL (2.4-3.5); Glucose 155 mg/dL (80-115); Lipase 60 U/L (8-78); Potassium 3.4 mmol/L (3.5-5.1); Sodium 124 mmol/L (136-145)
[2025-07-06 05:43] LABS: #Basophils Less than 0.03 10x3/uL (0.0-0.2); #Eosinophils Less than 0.03 10x3/uL (0.0-0.7); #Monocytes 0.24 10x3/uL (0.11-0.59); #Neutrophils 4.35 10x3/uL (1.40-6.50); %Basophils 0.2 % (0.0-1.0); %Eosinophils 0.0 % (0.0-10.0); %Lymphocytes 16.3 % (21.0-51.0); %Monocytes 4.3 % (0.0-10.0); %Neutrophils 78.8 % (42.0-75.0); Hematocrit 37.7 % (42.0-52.0); Hemoglobin 13.2 g/dL (14.0-18.0); Mean Corpuscular Hemoglobin 28.9 pg (27.0-31.0); Mean Corpuscular Volume 82.7 fL (78.0-98.0); Platelet Count 141 10x3/uL (130-400); Red Blood Cell (RBC) Count 4.56 mill/uL (4.70-6.10); White Blood Cell (WBC) Count 5.52 10x3/uL (4.8-10.8)
[2025-07-06 06:08] LABS: Bacteria/HPF None Seen HPF (None Seen); CAUTI Indications for Culture Dysuria,urgency,freq; Glucose, Urine (Dipstick) 200 mg/dL (Negative); Leukocyte Negative Leu/uL (Negative); Protein, Urine (Dipstick) Negative (Neg-Trace); RBC/HPF None Seen HPF (0-3); Specific Gravity, Urine 1.013 (1.002-1.036); WBC/HPF None Seen HPF (0-3)
[2025-07-06] MEDS ORDERED: Pantoprazole 40 MG VIAL ONE (06:22)
[2025-07-06 06:31] LABS: Urine Culture Reflex No No
[2025-07-06] MEDS ORDERED: Iopamidol 370 76% 100 ML VIAL ONE (11:18)
== END 2025-07-06 07:25 | disposition home or self-care (01) ==
LOC: ERS 02:18
DX: K20.90 Esophagitis, unspecified without bleeding (principal); E87.1 Hypo-osmolality and hyponatremia; E11.9 Type 2 diabetes mellitus without complications; I10 Essential (primary) hypertension
CPT/HCPCS: 74177; 80053; 80307; 81001; 83690; 85025; 96361; 96374; 96375; J1885; J2470; Q9967